=== PATIENT | female | born 2000 | race Caucasian/White ===

== ENCOUNTER 2020-02-27 20:37 | Emergency (ER) | payer MEDICAID ==
[2020-02-27] MEDS ORDERED: Albuterol 2.5 MG/3 ML NEB.SOL* (0.083%) INH ONE ×3 (20:42→21:10)
--- NOTE | 2020-02-27 20:46 | ED ---
Shortness of Breath - HPI Summary HPI Summary: 19-year-old female with a significant past medical history of type 2 diabetes, asthma presents to the emergency department today complaining of shortness of breath. Patient states her shortness of breath began approximately 30 minutes ago while she was walking. Patient states she used her albuterol inhaler prior to arrival. At this time patient has no evidence of labored breathing and is in no acute distress. There is no wheezing or stridor noted. Patient felt well prior to this episode of dyspnea with no fever, chest pain, abdominal pain , nausea, vomiting, diarrhea. Patient states she has been using her albuterol rescue inhaler approximately 4 times a week. Patient denies alcohol use or recreational drug use. Patient is not considered high risk for COVID19. Patient states she has been tested 4 times for COVID-19 and all tests have returned negative. - History of Current Complaint Time Seen by Provider: 02/27/20 20:41 Hx Obtained From: Patient Onset/Duration: Sudden Onset Timing: Constant Current Severity: Mild Alleviating Factors: Bronchodilators Associated Signs & Symptoms: Negative - Allergy/Home Medications Allergies/Adverse Reactions: Allergies Allergy/AdvReac Type Severity Reaction Status Date / Time egg Allergy Coughing Verified 02/27/20 21:02 lactose Allergy Diarrhea Verified 02/27/20 21:02 Home Medications: Home Medications Albuterol HFA INHALER* [Ventolin HFA Inhaler*] 2 puff INH Q4H PRN 02/27/20 [ History Confirmed 02/27/20] Review of Systems Constitutional: Negative Eyes: Negative ENT: Negative Cardiovascular: Negative Positive: Shortness Of Breath. Negative: Cough Gastrointestinal: Negative Genitourinary: Negative Musculoskeletal: Negative Skin: Negative Neurological/Mental Status: Negative Psychological: Normal All Other Systems Reviewed And Are Negative: Yes Physical Exam - Summary Physical Exam Summary: Patient is no acute distress. There is no tracheal deviation, stridor, wheezing noted. Patient is able to speak in full unbroken sentences. No evidence of accessory muscle use of breathing. Triage Information Reviewed: Yes Vital Signs Reviewed: Yes Appearance: Positive: Well-Appearing, No Pain Distress, Well-Nourished Skin: Positive: Warm, Skin Color Reflects Adequate Perfusion Eyes: Positive: EOMI, MASHA ENT: Positive: Hearing grossly normal Respiratory/Lung Sounds: Positive: Clear to Auscultation, Breath Sounds Present. Negative: Stridor, Tracheal Deviation, Wheezes, Unable to speak in full sentences, Fatigue Cardiovascular: Positive: RRR, S1, S2 Abdomen Description: Positive: Nontender, Soft Bowel Sounds: Positive: Present Musculoskeletal: Positive: Strength/ROM Intact Neurological: Positive: Sensory/Motor Intact, Alert, Oriented to Person Place, Time, Normal Gait, Facial Symmetry, Speech Normal Psychiatric: Positive: Normal, Affect/Mood Appropriate AVPU Assessment: Alert Procedures - Sedation Patient Received Moderate/Deep Sedation with Procedure: No Course/Dx - Course Course Of Treatment: Patient was evaluated in the emergency department today for shortness of breath. Vitals noted and stable. Patient had no evidence of labored breathing. Plan of care blood glucose shows BG 90. Patient was given 50 mg oral prednisone and albuterol neb for asthma exacerbation. Patient continued to be in no acute distress. Patient discharged to outpatient follow- up. - Diagnoses Differential Diagnosis/HQI/PQRI: Positive: Airway Obstruction, Asthma, Bronchitis, COPD Exacerbation Provider Diagnoses: Dyspnea Discharge ED - Sign-Out/Discharge Documenting (check all that apply): Patient Departure - Discharge Plan Condition: Stable Disposition: HOME Patient Education Materials: Asthma (ED) Referrals: [facility] [Outside] - 3 Days Additional Instructions: You were seen in the emergency department today due to an asthma exacerbation. Please continue to use your albuterol rescue inhaler as needed. I have referred you to a primary care provider whom you may become established with for further treatment of your asthma. Please return to this emergency department immediately should you develop any new or worsening symptoms including increasing shortness of breath. - Billing Disposition and Condition Condition: STABLE Disposition: Home - Attestation Statements Provider Attestation: I was available for consult. This patient was seen by the JUAN ALBERTO. The patient was not presented to, seen by, or examined by me. Edwin Menon MD
[2020-02-27 21:42] VITALS: BP 143/86
== END 2020-02-27 21:40 | disposition home or self-care (01) ==
LOC: ED 20:37
DX: R06.00 Dyspnea, unspecified (principal); E11.9 Type 2 diabetes mellitus without complications; J45.909 Unspecified asthma, uncomplicated; R06.02 Shortness of breath; Z79.899 Other long term (current) drug therapy
CPT/HCPCS: 99282; J7512

== ENCOUNTER 2020-03-12 19:42 | Emergency (ER) | payer MEDICAID ==
--- NOTE | 2020-03-12 20:17 | ED ---
HPI Diabetic - HPI Summary HPI Summary: 19 year old female presents with increased thirst for the past couple weeks. Has history of type 1 diabetes. Patient has been drinking a lot of fluids. She admits to occasionally abd pain. She states the pain is intermittent. She denies any chest pain or shortness breath. No cough. No urinary symptoms. No nausea vomiting. No diarrhea constipation. She does not have primary in the area so she has not been taking her diabetes medications. She states that metformin makes her sugars go too low. She is suppose to be on insulin. She denies any other complaints. - History Of Current Complaint Chief Complaint: EDDiabeticProb Time Seen by Provider: 03/12/20 19:49 - Allergies/Home Medications Allergies/Adverse Reactions: Allergies Allergy/AdvReac Type Severity Reaction Status Date / Time egg Allergy Coughing Verified 02/27/20 21:02 lactose Allergy Diarrhea Verified 02/27/20 21:02 Home Medications: Home Medications Albuterol HFA INHALER* [Ventolin HFA Inhaler*] 2 puff INH Q4H PRN 02/27/20 [ History Confirmed 03/12/20] PMH/Surg Hx/FS Hx/Imm Hx Endocrine/Hematology History: Reports: Hx Diabetes Respiratory History: Reports: Hx Asthma Infectious Disease History: No Infectious Disease History: Denies: Traveled Outside the [place] in Last 30 Days - Family History Known Family History: Positive: Non-Contributory - Social History Alcohol Use: None Substance Use Type: Reports: None Smoking Status (MU): Never Smoked Tobacco Review of Systems Negative: Fever Negative: Chest Pain Negative: Shortness Of Breath Positive: other - increase thirst All Other Systems Reviewed And Are Negative: Yes Physical Exam Triage Information Reviewed: Yes Vital Signs On Initial Exam: Initial Vitals Temp Pulse Resp BP Pulse Ox 98.9 F 94 16 137/103 97 03/12/20 19:48 03/12/20 19:48 03/12/20 19:48 03/12/20 19:48 03/12/20 19:48 Vital Signs Reviewed: Yes Appearance: Positive: Well-Appearing Skin: Positive: Warm, Dry Head/Face: Positive: Normal Head/Face Inspection Eyes: Positive: Normal, Conjunctiva Clear ENT: Positive: Pharynx normal Respiratory/Lung Sounds: Positive: Clear to Auscultation, Breath Sounds Present Cardiovascular: Positive: Normal, RRR Abdomen Description: Positive: Nontender, Soft Bowel Sounds: Positive: Present Musculoskeletal: Positive: Normal Neurological: Positive: Normal Psychiatric: Positive: Normal Procedures - Sedation Patient Received Moderate/Deep Sedation with Procedure: No Diagnostics - Vital Signs Vital Signs Temp Pulse Resp BP Pulse Ox 03/12/20 19:48 98.9 F 94 16 137/103 97 - Laboratory Lab Results: Lab Results 03/12/20 Range/Units 19:57 POC Glucose (mg/dL) 138 H (70-100) mg/dL Result Diagrams: 03/12/20 20:32 03/12/20 20:32 Lab Statement: Any lab studies that have been ordered have been reviewed, and results considered in the medical decision making process. Diabetic Course/Dx - Course Course Of Treatment: 19 year old female presents with increased thirst for the past couple weeks. Has history of type 1 diabetes. Patient has been drinking a lot of fluids. She admits to occasionally abd pain. She states the pain is intermittent. She denies any chest pain or shortness breath. No cough. No urinary symptoms. No nausea vomiting. No diarrhea constipation. She does not have primary in the area so she has not been taking her diabetes medications. She states that metformin makes her sugars go too low. She is suppose to be on insulin. She denies any other complaints. On exam has nontender abd. glucose normal. wbc normal. sent for Hb A1c. will have follow up with karma nieto as sugars have been normal here do not want to start on any medications. told to buy otc glucose test scripts to test sugars. told to watch diet. patient understand and agrees with plan. - Diagnoses Differential Dx: Diabetic Ketoacidosis, Hyperglycemia, New Onset Diabetes Provider Diagnoses: Excessive thirst - Critical Care Time Critical Care Statement: Critical care time is provided exclusive of any time spent performing procedures. Discharge ED - Sign-Out/Discharge Documenting (check all that apply): Patient Departure - Discharge Plan Condition: Good Disposition: HOME Patient Education Materials: Meal Planning with Diabetes Exchanges (DC) Referrals: [facility] [Outside] Additional Instructions: follow up with karma nieto Start checking sugars daily Return to ED if develop any new or worsening symptoms - Billing Disposition and Condition Condition: GOOD Disposition: Home
[2020-03-12 20:45] LABS: ABS Basophils 0.1 10^3/ul (0-0.2); ABS Eosinophils 0.2 10^3/ul (0-0.6); ABS Lymphocytes 2.2 10^3/ul (1.0-4.8); ABS Monocytes 0.5 10^3/ul (0-0.8); ABS Neutrophils 3.9 10^3/ul (1.5-7.7); Eosinophil % 2.2 %; Hematocrit 38 % (35-47); Hemoglobin 12.6 g/dL (12.0-16.0); Lymphocyte % 32.7 %; Mean Corpuscular HGB Conc 33 g/dL (31-36); Mean Corpuscular Hemoglobin 25 pg (27-31); Mean Corpuscular Volume 77 fL (80-97); Mean Platelet Volume 7.1 fL (7.4-10.4); Platelet Count 341 10^3/uL (150-450); Red Blood Count 4.97 10^6 /uL (3.70-4.87); Red Cell Distribution Width 16 % (10-15); White Blood Count 6.8 10^3/uL (3.5-10.8)
[2020-03-12 21:01] LABS: ALT 20 U/L (7-52); AST 13 U/L (13-39); Albumin 4.6 g/dL (3.2-5.2); Albumin/Globulin Ratio 1.6 (1-3); Alkaline Phosphatase 95 U/L (34-104); Anion Gap 9 mmol/L (2-11); BUN/Creatinine Ratio 11.1 (8-20); Blood Urea Nitrogen 10 mg/dL (6-24); C Reactive Protein < 1.00 mg/L (<8.01); CO2 Carbon Dioxide 25 mmol/L (22-32); Calcium 9.4 mg/dL (8.6-10.3); Chloride 109 mmol/L (101-111); EGFR African American 97.6 (>60); EGFR Non-African American 80.7 (>60); Globulin 2.9 g/dL (2-4); Glucose 86 mg/dL (70-100); Potassium 3.2 mmol/L (3.5-5.0); Sodium 143 mmol/L (135-145); Total Protein 7.5 g/dL (6.4-8.9)
[2020-03-12 22:01] VITALS: BP 136/97
== END 2020-03-12 22:00 | disposition home or self-care (01) ==
LOC: ED 19:42
DX: R63.1 Polydipsia (principal); J45.909 Unspecified asthma, uncomplicated; E10.9 Type 1 diabetes mellitus without complications; Z79.899 Other long term (current) drug therapy
CPT/HCPCS: 36415; 80053; 82803; 83036; 83605; 83690; 85025; 86140; 99283

== ENCOUNTER 2020-03-13 17:48 | Emergency (ER) | payer MEDICAID ==
--- NOTE | 2020-03-13 18:21 | ED ---
Complex/Multi-Sys Presentation - HPI Summary HPI Summary: 19 year old F presenting to [facility] with a chief complaint of reportedly fluctuating sugars. Patient reports that she was told that she needs to check her sugars but is unable to check her sugars at home so she calls the ambulance. She also reports difficulty seeing earlier today and excessive thirst. The patient rates the pain 0/10 in severity. Symptoms aggravated by nothing. Symptoms alleviated by nothing. Patient denies any fever, chills, erythema of eyes, sore throat, chest pain, shortness of breath, cough, abdominal pain, nausea/vomiting, dysuria, hematuria, myalgia, edema, rash, or dizziness. She states that she does not have a PCP. Medication list reviewed. Allergy list reviewed. - History Of Current Complaint Chief Complaint: EDGeneral Time Seen by Provider: 03/13/20 17:55 Hx Obtained From: Patient Onset/Duration: Still Present Timing: Constant Aggravating Factor(s): None Alleviating Factor(s): None Associated Signs And Symptoms: Positive: Other - Difficulty seeing, thirst. Negative: Dizziness, SOB, Cough, Chest Pain, Edema, Nausea, Vomiting, Abdominal Pain, Dysuria, Fever - Allergies/Home Medications Allergies/Adverse Reactions: Allergies Allergy/AdvReac Type Severity Reaction Status Date / Time egg Allergy Coughing Verified 03/13/20 18:00 lactose Allergy Diarrhea Verified 03/13/20 18:00 Home Medications: Home Medications Albuterol HFA INHALER* [Ventolin HFA Inhaler*] 2 puff INH Q4H PRN 02/27/20 [ History Confirmed 03/13/20] PMH/Surg Hx/FS Hx/Imm Hx Endocrine/Hematology History: Reports: Hx Diabetes Respiratory History: Reports: Hx Asthma - Surgical History Surgical History: None Infectious Disease History: No Infectious Disease History: Denies: Traveled Outside the [place] in Last 30 Days - Family History Known Family History: Negative: Hypertension, Diabetes - Social History Alcohol Use: None Substance Use Type: Reports: None Smoking Status (MU): Never Smoked Tobacco Review of Systems Positive: Other - Fluctuating sugars, thirst. Negative: Fever, Chills Positive: Other - Difficulty seeing. Negative: Erythema Negative: Sore Throat Negative: Chest Pain Negative: Shortness Of Breath, Cough Negative: Abdominal Pain, Vomiting, Nausea Negative: dysuria, hematuria Negative: Myalgia, Edema Negative: Rash Neurological/Mental Status: Negative - Dizziness All Other Systems Reviewed And Are Negative: Yes Physical Exam - Summary Physical Exam Summary: Constitutional: Well-developed, Well-nourished, Alert. (-) Distressed Skin: Warm, Dry HENT: Normocephalic; Atraumatic Eyes: Conjunctiva normal Neck: Musculoskeletal ROM normal neck. (-) JVD, (-) Stridor, (-) Tracheal deviation Cardio: Rhythm regular, mild tachycardia, heart rate of 104 BPM, Heart sounds normal; Intact distal pulses; The pedal pulses are 2+ and symmetric. Radial pulses are 2+ and symmetric. (-) Murmur Pulmonary/Chest wall: Effort normal. (-) Respiratory distress, (-) Wheezes, (-) Rales Abd: Soft, (-) tenderness, (-) Distension, (-) Guarding, (-) Rebound Musculoskeletal: (-) Edema Lymph: (-) Cervical adenopathy Neuro: Alert, Oriented x3 Psych: Mood and affect Normal Triage Information Reviewed: Yes Vital Signs On Initial Exam: Initial Vitals Temp Pulse Resp BP Pulse Ox 98.8 F 94 18 142/93 97 03/13/20 17:56 03/13/20 17:56 03/13/20 17:56 03/13/20 17:56 03/13/20 17:56 Vital Signs Reviewed: Yes Procedures - Sedation Patient Received Moderate/Deep Sedation with Procedure: No Diagnostics - Vital Signs Vital Signs Temp Pulse Resp BP Pulse Ox 03/13/20 17:56 98.8 F 94 18 142/93 97 - Laboratory Result Diagrams: 03/13/20 18:40 03/13/20 18:40 Lab Statement: Any lab studies that have been ordered have been reviewed, and results considered in the medical decision making process. Complex Multi-Symp Course/Dx Course Of Treatment: 19 year old F presenting to [facility] with a chief complaint of reportedly fluctuating sugars. Patient reports that she was told that she needs to check her sugars but is unable to check her sugars at home so she calls the ambulance. She also reports difficulty seeing earlier today and excessive thirst. Physical exam findings: mild tachycardia, heart rate of 104 BPM. Laboratory results with no significant abnormalities except for an RBC of 5.16, MCV of 77, MCH of 25, RDW of 16, MPV of 7.0, VBG pCO2 of 35, VBG HCO3 of 20.2, VBG O2 saturation of 63.6, VBG base excess of -4.9, potassium of 3.3, glucose of 106, and ur specific gravity of 1.002. Patient will be discharged with follow up from [facility]. She has an appointment with [facility] tomorrow and will keep her appointment. She should receive a glucose tolerance test, there is no indication to start any medications currently. There is no indication for her to take home blood glucose. She could have psychogenic polydipsia. The patient is agreeable with this plan. - Diagnoses Provider Diagnoses: Hyperglycemia, Elevated hemoglobin A1c, Polydipsia - Critical Care Time Critical Care Statement: Critical care time is provided exclusive of any time spent performing procedures. Discharge ED - Sign-Out/Discharge Documenting (check all that apply): Patient Departure - Discharge Plan Condition: Stable Disposition: HOME Patient Education Materials: Nondiabetic Hyperglycemia (ED) Referrals: [facility] [Outside] - 2 Days Additional Instructions: Follow-up with [facility] in 2 days. Return to the emergency department for changing or worsening symptoms. - Attestation Statements Document Initiated by Scribe: Yes Documenting Scribe: Kayley Kingston Provider For Whom Scribe is Documenting (Include Credential): Shorty El MD Scribe Attestation: Kayley Cardona, scribed for Shorty El MD on 03/13/20 at 2149. Status of Scribe Document: Ready
--- OUTSIDE RECORDS SUMMARY | 2020-03-13 18:46 | XMS REPORT | Summary of Care ---
:2000 Author Organization [facility] Address [address] [place] [address] Care Team Providers Name Role Phone Catrachito Laytonika Amanda SALMON Primary Care Provider Reason for Visit Reason Comments Shortness of Breath Encounter Details Date Type Department Care Team Description 02/02/2020 Emergency EMERGENCY DEPARTMENT CC Marquez Keith, Shortness of breath [address]osa MD (Primary Dx) [place] [address] [address] [facility] [phone] [place], [place] [id number] Allergies Active Allergy Reactions Severity Noted Date Comments Eggs Or Egg-Derived Products 01/10/2020 Lactose Diarrhea Medium 01/11/2020 documented as of this encounter (statuses as of 02/02/2020) Medications Medication Sig Dispensed Refills Start Date End Date Status LITHIUM PO Take 600 mg by 0 Active mouth nightly MELATONIN TR PO Take 10 mg by 0 Active mouth nightly OLANZapine 10 MG Oral Take 15 mg by 0 Active Tablet (ZYPREXA) mouth nightly Polyethylene Glycol Take 17 g by 0 Active 3350 Oral Packet mouth daily as (MIRALAX) needed Please substitute bottle for packets, if packets are unavailable. Sertraline HCl 50 MG Take 50 mg by 0 Active Oral Tablet (ZOLOFT) mouth daily Vitamin D3 25 MCG Take 2,000 Units 0 Active (1000 UT) Oral Tablet by mouth daily (CHOLECALCIFEROL) Atorvastatin Calcium Take 10 mg by 0 Active 10 MG Oral Tablet mouth every (LIPITOR) evening cloNIDine HCl 0.1 MG Take 0.1 mg by 0 Active Oral Tablet mouth Two Times (CATAPRES) Daily Saline Nasal [place] 2 sprays by Nasal 0 Active 0.65 % Nasal Solution route as needed (OCEAN) for Congestion Senna 8.6 MG Oral Take 2 tablets by 60 tablet 0 01/11/2020 02/10/2020 Active Tablet mouth nightly Ondansetron 4 MG Oral Take 1 tablet by 15 tablet 0 01/16/2020 Active Tablet Disintegrating mouth every 8 (ZOFRAN-ODT) (eight) hours as needed for Nausea Acetaminophen 325 MG Take 2 tablets by 30 tablet 0 01/24/2020 02/03/2020 Active Oral Tablet mouth every 6 (six) hours as needed for Pain for up to 10 days Ibuprofen 400 MG Oral Take 1 tablet by 30 tablet 0 01/24/2020 02/03/2020 Active Tablet (ADVIL,MOTRIN) mouth every 6 (six) hours as needed for Pain for up to 10 days documented as of this encounter (statuses as of 02/02/2020) Active Problems Problem Noted Date Urinary retention 01/10/2020 Suicidal ideations 10/26/2015 Aggressive behavior of adolescent 10/24/2015 documented as of this encounter (statuses as of 02/02/2020) Immunizations Name Administration Dates Next Due Influenza Quad IM with Pres (0.5 mL dose) 10/28/2015 documented as of this encounter Social History Tobacco Use Types Packs/Day Years Used Date Never Smoker Smokeless Tobacco: Never Used Alcohol Use Drinks/Week oz/Week Comments No Sex Assigned at Date Recorded Not on file Job Start Date Occupation Industry Not on file Not on file Not on file Travel History Travel Start Travel End No recent travel history available. documented as of this encounter Last Filed Vital Signs Vital Sign Reading Time Taken Comments Blood Pressure 138/81 02/02/2020 5:42 PM EDT Pulse 95 02/02/2020 5:42 PM EDT Temperature 37 02/02/2020 6:07 PM EDT C (98.6 F) Respiratory Rate 18 02/02/2020 5:42 PM EDT Oxygen Saturation 95% 02/02/2020 5:42 PM EDT Inhaled Oxygen Concentration - - Weight - - Height - - Body Mass Index - - documented in this encounter Discharge Instructions AttachmentsThe following attachments cannot be sent through Care Everywhere.Asthma, Acute (Adult) (Hebrew)documented in this encounter Plan of Treatment Date Type Specialty Care Team Description 07/23/2020 Office Visit Urology Hyacinth Funez MD [address] [place] [address] [phone] Name Type Priority Associated Diagnoses Date/Time Microbiology Microbiology Routine 02/02/2020 6:02 PM Miscellaneous EDT Name Type Priority Associated Diagnoses Order Schedule Microbiology Microbiology Routine Once for 1 Miscellaneous Occurrences starting 02/02/2020 until 02/02/2020 Health Maintenance Due Date Last Done Comments Pneumococcal Vaccine: Pediatrics 2006 (0 to 5 Years) and At-Risk Patients (6 to 64 Years) (1 of 1 - PPSV23) Influenza Vaccine 08/21/2019 10/28/2015 Chlamydia Screening 01/13/2021 01/13/2020, 01/11/2020, 01/10/2020 DTaP,Tdap,and Td Vaccines (8 - Td) 05/07/2029 05/07/2019, 06/05/2012, 02/27/2007, Additional history exists Pneumococcal Vaccine: 65+ Years (1 2065 of 2 - PCV13) HIB Vaccines Completed 01/12/2002, 01/12/2002, 02/10/2001, Additional history exists IPV Vaccines Completed 07/06/2005, 01/12/2002, 02/10/2001, Additional history exists MMR Vaccines Completed 07/06/2005, 08/18/2001 Varicella Vaccines Completed 06/03/2011, 08/18/2001 HPV Vaccines Completed 01/07/2016, 06/19/2015, 06/13/2014, Additional history exists Hepatitis A Vaccines Completed 12/02/2018, 12/02/2018, 07/20/2017, Additional history exists Hepatitis B Vaccines Completed 04/28/2019, 10/29/2018, 07/20/2017 HIV Screening Completed 01/11/2020, 01/10/2020 documented as of this encounter Procedures Procedure Name Priority Date/Time Associated Diagnosis Comments RESPIRATORY PANEL STAT 02/02/2020 6:02 PM Results for this EDT procedure are in the results section. documented in this encounter Results Respiratory Panel (02/02/2020 6:02 PM EDT) Special Request None [facility] at Culture/Results Polymerase chain reaction is NEGATIVE for Influenza A H1, H3 and 2009 H1 viruses, Influenza B virus, Respiratory syncytial virus, Human metapneumovirus, Parainfluenza virus 1, 2, 3 and 4, Adenovirus, Rh [facility] inovirus/Enterovirus, Coronavirus HKU1, NL63, OC43, [facility] and 229E, Bordetella pertussis, Mycoplasma pneumoniae and Chlamydia pneumoniae. This assay does not detect novel Coronavirus (SARS-CoV, SARS-CoV-2, MERS-CoV) . Specimen Nasopharyngeal Swab Performing Organization Address City/State/Zipcode Phone Number [facility] AT [address] [address] [facility] at [address] [place] [address] documented in this encounter Visit Diagnoses Diagnosis Shortness of breath - Primary documented in this encounter
--- OUTSIDE RECORDS SUMMARY | 2020-03-13 18:46 | XMS REPORT | Continuity of Care Document ---
:2000 Author Organization [facility] Address [address] [place] [address] Phone Care Team Providers Name Role Phone Khoi Peters NP, Bella Unavailable Unavailable Allergies, Adverse Reactions, Alerts Substance Reaction Status Criticality No Known Allergies Active No Information Medications Medication Instructions Dosage Effective Status Comments Dates (start - stop) medroxyprogesterone 150 IM Q 10-13 weeks - Active mg/mL intramuscular suspension sertraline 50 mg tablet take 1 tablet by 50 MG - Active oral route every day lithium carbonate 300 mg take 1 capsule by 300 MG - Active capsule oral route 3 times every day Folgard 2,000 unit-800 - Active mcg-0.32 mg tablet Colace 100 mg capsule take 1 capsule by 100 MG - Active oral route every day at bedtime as needed olanzapine 15 mg tablet take 1 tablet by 15 MG - Active oral route every day melatonin 10 mg capsule - Active Miralax 17 gram oral take 1 packet by 17 G - Active powder packet oral route every day mixed with 8 oz. water, juice, soda, coffee or tea senna 8.6 mg tablet take 2 tablet by 2.00 tablet - Active oral route every day as needed for constipation atorvastatin 10 mg tablet take 1 tablet by 10 MG - Active oral route every day clonidine HCl 0.1 mg take 1 tablet by 0.1 MG - Active tablet oral route 2 times every day Problems Condition Effective Dates (start - Clinical Status Comments stop) Encounter for surveillance of injectable contraceptive Encounter for test, result negative Encntr screen for infections w sexl mode of transmiss Encounter for initial prescription of injectable contracep Procedures Procedure Date INJECTION DEPO/ROCEPH Medroxyprogesterone Inj. Injection Or Lab Only Visit Est Results Test Name Date and Time Measure Units Reference Range Abnormal Flag Status Comments No Information Advance Directives Directive Yes / No Effective Date File Name No Information Encounters Encounter Practice Location Reason(s) Diagnoses Date Provider Providers Description For Visit Copied on [facility]counter [facility] Encounter for Khoi Peters Referring Parenthood [facility] surveillance of [facility] Provider: Central & injectable 0 . [address] [facility], contraceptive [facility], [address] [place], [address] [place] [address], [place], [place], [place], [place], [place], [id number], [place], [id number], . [place], tel:[phone]. tel:[phone] tel:[phone] [id number] [facility] Encounter for Khoi Peters Referring Parenthood Nancy test, [facility] Provider: Central & result 9 . 114 [facility], negativeEncntr [facility], [address] [place], [address] [place] [address], infections w [place], [facility], sexl mode of [place], [place], [place], transmissEncoun [id number], [place], [id number], ter for initial [place]. [place], prescription of tel:[phone]. tel:[phone] tel:[phone] contracep [id number] Family History Family Member Diagnosis Age At Onset 1st degree relative No hx of coronary heart disease (female <65, male <55) 1st degree relative No hx of venous thromboembolism 1st degree relative No hx of cancer of breast, colon, endometrium or ovary 1st degree relative No hx of osteoporosis Immunizations Vaccine Date Status Comments No Information Payers Payer name Insurance type Covered republican ID Authorization(s) Medicaid MC [id number] Social History Type Description Quantity Date Captured Comments Alcohol Use Details Unknown Caffeine Use Details Unknown Tobacco Use Status No Information Smoking Status Never smoker Sex Female Vital Signs Date / Height Weight BMI Pulse Blood Temperature Respiratory Body Head BMI Pulse Inhaled Time: Rate Pressure Rate Surface Circumference percentile [place] Area No Information Chief Complaint And Reason For Visit No Information Reason For Referral Reason For Referral No Information Plan Of Treatment Date Type Action Status No Information History Of Present Illness Encounter Date Complaint History Of Present Illness No Information Functional Status Date Functional Assessment No Information Medications Administered Medication Instructions Dosage Effective Dates (start - stop) Status Comments No Information Instructions Date Instruction Additional Information No Information Assessments Type Assessment Date assessment Encounter for surveillance of injectable contraceptive Goals Health Concern Goal Type Priority Status Date No Information Medical Equipment Description Device [place] Device Identifier Effective Dates (start - stop ) Status No Information Mental Status Date Cognitive Assessment No Information Health Concerns Observation Date No Information Concern Status Date No Information Physical Examination Exam Findings Details No Information
--- OUTSIDE RECORDS SUMMARY | 2020-03-13 18:46 | XMS REPORT | Summary of Care ---
:2000 Author Organization [facility] Address [address] [place] [address] Care Team Providers Name Role Phone OnitrevonreinaCatrachitoKrystal Amanda SALMON Primary Care Provider Reason for Visit Reason Comments Barriga Catheter Problem Encounter Details Date Type Department Care Team Description 01/13/2020 - Emergency PEDIATRIC EMERGENCY Trever Ham MD [address] [place] [address] [phone] Urinary tract infection 01/14/2020 DEPARTMENT Edwin Tate MD [address] [place] [address] [phone] associated with [address] [facility] catheterization of [place], [place] urinary tract, [id number] unspecified indwelling [phone] urinary catheter type, initial encounter (Primary Dx) Allergies Active Allergy Reactions Severity Noted Date Comments Eggs Or Egg-Derived Products 01/10/2020 Lactose Diarrhea Medium 01/11/2020 documented as of this encounter (statuses as of 01/14/2020) Medications Medication Sig Dispensed Refills Start Date End Date Status LITHIUM PO Take 600 mg by 0 Active mouth nightly MELATONIN TR PO Take 10 mg by 0 Active mouth nightly OLANZapine 10 MG Take 15 mg by 0 Active Oral Tablet mouth nightly (ZYPREXA) Polyethylene Glycol Take 17 g by 0 Active 3350 Oral Packet mouth daily as (MIRALAX) needed Please substitute bottle for packets, if packets are unavailable. Sertraline HCl 50 MG Take 50 mg by 0 Active Oral Tablet (ZOLOFT) mouth daily Vitamin D3 25 MCG Take 2,000 Units 0 Active (1000 UT) Oral by mouth daily Tablet (CHOLECALCIFEROL) Atorvastatin Calcium Take 10 mg by 0 Active 10 MG Oral Tablet mouth every (LIPITOR) evening cloNIDine HCl 0.1 MG Take 0.1 mg by 0 Active Oral Tablet mouth Two Times (CATAPRES) Daily Saline Nasal [place] 2 sprays by Nasal 0 Active 0.65 % Nasal route as needed Solution (OCEAN) for Congestion Acetaminophen 325 MG Take 2 tablets by 30 tablet 0 01/11/2020 01/21/2020 Active Oral Tablet mouth every 6 (six) hours as needed for up to 10 days Senna 8.6 MG Oral Take 2 tablets by 60 tablet 0 01/11/2020 02/10/2020 Active Tablet mouth nightly Docusate Sodium 100 Take 1 capsule by 20 capsule 0 01/11/2020 01/21/2020 Active MG Oral Capsule mouth Two Times (COLACE) Daily for 10 days Cephalexin 500 MG Take 1 capsule by 40 capsule 0 01/14/2020 01/24/2020 Active Oral Capsule mouth Four times (KEFLEX) daily for 10 days documented as of this encounter (statuses as of 01/14/2020) Active Problems Problem Noted Date Urinary retention 01/10/2020 Suicidal ideations 10/26/2015 Aggressive behavior of adolescent 10/24/2015 documented as of this encounter (statuses as of 01/14/2020) Immunizations Name Administration Dates Next Due Influenza [...] Sign Reading Time Taken Comments Blood Pressure 118/76 01/14/2020 2:06 AM EST Pulse 89 01/14/2020 2:06 AM EST Temperature 36.4 01/14/2020 2:06 AM EST C (97.6 F) Respiratory Rate 18 01/14/2020 2:06 AM EST Oxygen Saturation 96% 01/14/2020 2:06 AM EST Inhaled Oxygen Concentration - - Weight 108 kg (238 lb 1.6 oz) 01/13/2020 6:38 PM EST Height 172.7 cm (5' 8") 01/13/2020 6:38 PM EST Body Mass Index 36.2 01/13/2020 6:38 PM EST documented in this encounter Discharge Instructions AttachmentsThe following attachments cannot be sent through Care Everywhere.Catheter-Associated Urinary Tract Infections (Citizen Of [place])Urinary Retention, Female (Citizen Of [place])documented in this encounter Progress Notes Gadiel Saldivar MD - 01/14/2020 2:38 AM ESTCalled by ER regarding patient who recently had barriga placed for urinary retention, with follow up not until 02/19. The question was regarding if barriga could be removed. Stated that it is reasonableto offer a trial of void, with assessment of postvoid residual, and replacement of the barriga with shorter term urology follow up if she fails the TOV. documented in this encounter Plan of Treatment Date Type Specialty Care Team Description 02/20/2020 Office Visit Urology Hyacinth Funez MD [address] [place] [address] [phone] Name Type Priority Associated Diagnoses Date/Time Amplified GC and Microbiology STAT 01/13/2020 11:12 PM Chlamydia EST Urine Culture ; Urine Microbiology Routine 01/13/2020 8:29 PM EST Name Type Priority Associated Diagnoses Order Schedule Amplified GC and Microbiology STAT STAT for 1 Occurrences Chlamydia starting 01/13/2020 until 01/13/2020 Urine Culture Microbiology Routine Once for 1 Occurrences starting 01/13/2020 until 01/13/2020 Health Maintenance Due Date Last Done Comments Pneumococcal Vaccine: Pediatrics 2006 (0 to 5 Years) and At-Risk Patients (6 to 64 Years) (1 of 1 - PPSV23) Influenza Vaccine 08/21/2019 10/28/2015 Chlamydia Screening 01/11/2021 01/11/2020, 01/10/2020 DTaP,Tdap,and Td Vaccines (8 - [...] encounter Procedures Procedure Name Priority Date/Time Associated Comments Diagnosis BETA HCG, QUANT STAT 01/14/2020 12:18 Results for this AM EST procedure are in the results section. SEDIMENTATION RATE, STAT 01/14/2020 12:18 Results for this AUTOMATED AM EST procedure are in the results section. CBC AND DIFFERENTIAL STAT 01/14/2020 12:18 Results for this AM EST procedure are in the results section. INFLAMMATORY STAT 01/14/2020 12:18 Results for this C-REACTIVE PROTEIN AM EST procedure are in (CRP) the results section. LIPASE LEVEL STAT 01/14/2020 12:18 Results for this AM EST procedure are in the results section. HEPATIC FUNCTION PANEL STAT 01/14/2020 12:18 Results for this A AM EST procedure are in the results section. BASIC METABOLIC PANEL STAT 01/14/2020 12:18 Results for this AM EST procedure are in the results section. WET PREP, GENITAL STAT 01/13/2020 11:12 Results for this PM EST procedure are in the results section. AIMEE PREP STAT 01/13/2020 11:12 Results for this PM EST procedure are in the results section. GRAM STAIN STAT 01/13/2020 11:12 Results for this PM EST procedure are in the results section. US ABDOMEN LIMITED STAT 01/13/2020 10:48 Results for this 201[address] PM EST procedure are in the results section. US RENAL OR AORTA STAT 01/13/2020 10:48 Results for this COMPLETE 39862 PM EST procedure are in the results section. US TRANSVAGINAL WITH STAT 01/13/2020 10:48 Results for this DOPPLER (ED USE ONLY) PM EST procedure are in the results section. URINALYSIS WITH STAT 01/13/2020 8:59 Results for this MICROSCOPIC PM EST procedure are in the results section. documented in this encounter Results Inflammatory C-Reactive Protein (CRP) (01/14/2020 12:18 AM EST) C Reactive Protein 7.3 <8.0 mg/L [facility] Pathology Specimen Plasma Performing Organization Address [facility] Phone Number [facility] [address] [place] [address] [phone] [facility] [address] [place] [phone] Pathology Sedimentation rate, automated (01/14/2020 12:18 AM EST) Sed Rate - ESR 25 (H) <20 mm/hr [facility] Pathology Specimen EDTA Whole Blood Performing Organization Address [facility] Phone Number [facility] [address] [place] [phone] [facility] [address] [place] [phone] Pathology Beta Hcg, Quant (01/14/2020 12:18 AM EST) Beta HCG, Quant <1 <5 m[IU]/mL [facility] Pathology Specimen Plasma Performing Organization Address [facility] Phone Number [facility] [address] [place] [address] [phone] [facility] [address] [place] [phone] Pathology Lipase Level (01/14/2020 12:18 AM EST) Lipase 41 13 - 60 U/L [facility] Pathology Specimen Plasma Performing Organization Address [facility] Phone Number [facility] [address] [place] [address] [phone] [facility] [address] [place] [address] Pathology Hepatic Function Panel (01/14/2020 12:18 AM EST) Albumin 4.3 3.5 - 5.2 g/dL [facility] Pathology Bilirubin, Total 0.5 <1.2 mg/dL [facility] Pathology Bilirubin, Direct <0.2 <0.3 mg/dL [facility] Pathology Alkaline Phosphatase 107 (H) 45 - 87 U/L [facility] Pathology AST/SGO 18 <32 U/L [facility] Pathology ALT/SGP 19 <33 U/L [facility] Pathology Total Protein 7.2 6.4 - 8.3 g/dL [facility] Pathology Specimen Plasma Performing Organization Address [facility] Phone Number [facility] [address] [place] [address] [facility] [address] [place] [address] Pathology Basic Metabolic Panel (01/14/2020 12:18 AM EST) Bicarbonate 22 22 - 29 mmol/L [facility] Pathology Chloride 104 98 - 107 mmol/L [facility] Pathology Creatinine 0.78 0.50 - 0.90 [facility] mg/dL [facility] Pathology Glucose 79 70 - 140 mg/dL [facility] Pathology Potassium 3.4 3.4 - 5.1 mmol/L [facility] Pathology Sodium 139 136 - 145 mmol/L [facility] Pathology Blood Urea Nitrogen 11 6 - 20 mg/dL [facility] Pathology Anion Gap 13 8 - 15 mmol/L [facility] Pathology Osmolality, Panda 286 275 - 300 [facility] mosm/kg [facility] Pathology BUN/Cre Ratio 14 [facility] Pathology Calcium 9.4 8.6 - 10.0 mg/dL [facility] Pathology GFR Non >90 >60 [facility] Egyptian 2009 CDK-EPI mL/min/1.73m2 [facility] Pathology GFR >90 >60 [facility] 2009 CKD-EPI mL/min/1.73m2 [facility] Pathology Specimen Plasma Performing Organization Address City/[facility] Phone Number [facility] [address] [place] [address] [phone] [facility] [address] [place] [address] Pathology CBC and Differential (01/14/2020 12:18 AM EST) White Blood Cell 9.9 4.5 - 13 [facility] 10*3/uL [facility] Pathology Red Blood Cell 4.49 4.1 - 5.3 [facility] 10*6/uL [facility]ology Hemoglobin 12.0 11.5 - 15.5 [facility] g/dL [facility]ology Hematocrit 36.1 36 - 45 % [facility] Pathology Mean Cell Volume 80.5 80 - 96 fL [facility] Pathology Mean Cell Hemoglobin 26.8 (L) 27 - 33 pg [facility] Pathology Mean Cell Hgb Conc 33.2 32.0 - 36.0 [facility] g/dL [facility] Pathology Red Cell Dist Width 14.8 (H) 11.5 - 14.5 % [facility] Pathology Platelet Count 335 150 - 400 [facility] 10*3/uL [facility] Pathology Differential Type Automated Diff [facility] Pathology Neutrophil 58 % [facility]ology Lymphocyte 35 % [facility]ology Monocyte 5 % [facility] Pathology Eosinophil 1 % [facility] Pathology Basophil 1 % [facility] Pathology Abs Neutrophil 5.76 1.8 - 7.0 [facility] 10*3/uL [facility] Pathology Abs Lymphocyte 3.40 1.2 - 4.0 [facility] 10*3/uL [facility] Pathology Abs Monocyte 0.53 0 - 0.8 [facility] 10*3/uL [facility] Pathology Abs Eosinophil 0.12 0 - 0.5 [facility] 10*3/uL [facility] Pathology Abs Basophil 0.05 0 - 0.2 [facility] 10*3/uL [facility] Pathology Nucleated Red Blood 0 0 - 0 [facility] Cells /100{WBCs} [facility] Pathology Specimen EDTA Whole Blood Performing Organization Address City/[facility] Phone Number [facility] [address] [place] [address] [facility] [address] [place] [address] Pathology Wet Prep, Genital - Vaginal (01/13/2020 11:12 PM EST) Special Request None [facility] Wet Prep Wet prep: Negative [facility] for Trichomonas [facility] Clin Pathology Specimen Vaginal Performing Organization Address City/[facility] Phone Number [facility] [address] [place] [address] [phone] [facility] [address] [place] [address] Pathology AIMEE prep - Vaginal (01/13/2020 11:12 PM EST) Special Request None [facility] AIMEE Prep No yeast or fungal [facility] Pathology Specimen Vaginal Performing Organization Address City/[facility]/Zipcode Phone Number [facility] [address] [place] [address] [facility] [address] [place] [address] Pathology Gram stain - Vaginal (01/13/2020 11:12 PM EST) Special Request None [facility] Gram Stain 1+ WBC'S Seen. (A) [facility] Pathology Gram Stain Negative for [facility] bacterial [facility] Pathology vaginosis. Specimen Vaginal Performing Organization Address City/[facility]/Zipcode Phone Number [facility] [address] [place] [address] [phone] [facility] [address] [place] [address] Pathology US Abdomen Limited (01/13/2020 10:48 PM EST) Specimen Narrative Performed At PROCEDURE INFORMATION: PENDING SALE TO [facility] Exam: US Abdomen Limited, Appendix Exam date and time: 01/13/2020 9:59 PM Age: 19 years old Clinical indication: Abdominal pain; Tenderness; Right lower quadrant (rlq); Additional info: Eval appy TECHNIQUE: Imaging protocol: Real-time ultrasound of the abdomen with image documentation. Examination was focused on the appendix. COMPARISON: US RENAL OR AORTA COMPLETE [id number] 01/13/2020 10:08 PM FINDINGS: Appendix: The appendix is not visualized Intraperitoneal space: No abnormal fluid Collection is seen. The vessels are unremarkable. IMPRESSION: Nonvisualization of the appendix which does not rule out appendicitis. THIS DOCUMENT HAS BEEN ELECTRONICALLY SIGNED BY GRICELDA LAWLER MD Procedure Note Interface, Received Via Identiv System - 01/13/2020 10:56 PM EST PROCEDURE INFORMATION: Exam: US Abdomen Limited, Appendix Exam date and time: 01/13/2020 9:59 PM Age: 19 years old Clinical indication: Abdominal pain; Tenderness; Right lower quadrant (rlq); Additional info: Eval appy TECHNIQUE: Imaging protocol: Real-time ultrasound of the abdomen with image documentation. Examination was focused on the appendix. COMPARISON: US RENAL OR AORTA COMPLETE [id number] 01/13/2020 10:08 PM FINDINGS: Appendix: The appendix is not visualized Intraperitoneal space: No abnormal fluid Collection is seen. The vessels are unremarkable. IMPRESSION: Nonvisualization of the appendix which does not rule out appendicitis. THIS DOCUMENT HAS BEEN ELECTRONICALLY SIGNED BY GRICELDA LAWLER MD Performing Organization Address City/State/Zipcode Phone Number [facility] [address] [place] [address] US Renal or Aorta Complete (Radiology Suite) (01/13/2020 10:48 PM EST) Specimen Narrative Performed At PROCEDURE INFORMATION: PENDING SALE TO [facility] Exam: US Retroperitoneal Complete. Exam date and time: 01/13/2020 9:59 PM Age: 19 years old Clinical indication: Abdominal pain; Flank; Right; Additional info: Eval hydronephrosis TECHNIQUE: Imaging protocol: Real-time ultrasound of the retroperitoneum with image documentation. Complete exam. COMPARISON: US RENAL OR AORTA COMPLETE [id number] 01/08/2020 4:31 PM FINDINGS: Right kidney: The right kidney measures about 11.9 by 6.3 x 5.6 cm. The right renal cortex measures about 1.2 cm. No hydronephrosis is seen on the right. Left kidney: The left kidney measures about 11.9 by 5.3 x 4.6 cm. No hydronephrosis is seen. The left renal cortex measures about 1.2 cm. Aorta: Not evaluated Common iliac arteries: Not evaluated Inferior vena cava: Not evaluated Bladder: The bladder is collapsed around a Barriga catheter. Other findings: No hydronephrosis is demonstrated. IMPRESSION: Normal appearing renal ultrasound. THIS DOCUMENT HAS BEEN ELECTRONICALLY SIGNED BY GRICELDA LAWLER MD Procedure Note Interface, Received Via Identiv System - 01/13/2020 11:02 PM EST PROCEDURE INFORMATION: Exam: US Retroperitoneal Complete. Exam date and time: 01/13/2020 9:59 PM Age: 19 years old Clinical indication: Abdominal pain; Flank; Right; Additional info: Eval hydronephrosis TECHNIQUE: Imaging protocol: Real-time ultrasound of the retroperitoneum with image documentation. Complete exam. COMPARISON: US RENAL OR AORTA COMPLETE [id number] 01/08/2020 4:31 PM FINDINGS: Right kidney: The right kidney measures about 11.9 by 6.3 x 5.6 cm. The right renal cortex measures about 1.2 cm. No hydronephrosis is seen on the right. Left kidney: The left kidney measures about 11.9 by 5.3 x 4.6 cm. No hydronephrosis is seen. The left renal cortex measures about 1.2 cm. Aorta: Not evaluated Common iliac arteries: Not evaluated Inferior vena cava: Not evaluated Bladder: The bladder is collapsed around a Barriga catheter. Other findings: No hydronephrosis is demonstrated. IMPRESSION: Normal appearing renal ultrasound. THIS DOCUMENT HAS BEEN ELECTRONICALLY SIGNED BY GRICELDA LAWLER MD Performing Organization Address City/State/Zipcode Phone Number [facility] [address] [place] [address] US Transvaginal with Doppler (01/13/2020 10:48 PM EST) Specimen Narrative Performed At PROCEDURE INFORMATION: PENDING SALE [facility] Exam: US Pelvis, Transvaginal Exam date and time: 01/13/2020 9:59 PM Age: 19 years old Clinical indication: Pelvic pain; Additional info: Eval right ovary TECHNIQUE: Imaging protocol: Real-time transvaginal pelvic ultrasound with image documentation. Transvaginal imaging was used for better evaluation of the endometrium and adnexa. COMPARISON: US RENAL OR AORTA COMPLETE [id number] 01/08/2020 4:31 PM FINDINGS: Uterus/cervix: The uterus measures about 7.7 x 4.1 by 4.7 cm. The endometrial stripe measures about 8 mm. Right adnexa: The right ovary measures about 3.4 by 3.9 x 1.9 cm. There is a simple cyst adjacent to the right ovary measuring about 1.5 cm in diameter. Left adnexa: The left ovary measures about 4.2 x 2.8 by 2.9 cm. Free fluid: There is a small amount of free fluid in the pelvis. IMPRESSION: Normal-appearing pelvic ultrasound. THIS DOCUMENT HAS BEEN ELECTRONICALLY SIGNED BY GRICELDA LAWLER MD Procedure Note Interface, Received Via Identiv System - 01/13/2020 10:59 PM EST PROCEDURE INFORMATION: Exam: US Pelvis, Transvaginal Exam date and time: 01/13/2020 9:59 PM Age: 19 years old Clinical indication: Pelvic pain; Additional info: Eval right ovary TECHNIQUE: Imaging protocol: Real-time transvaginal pelvic ultrasound with image documentation. Transvaginal imaging was used for better evaluation of the endometrium and adnexa. COMPARISON: US RENAL OR AORTA COMPLETE [id number] 01/08/2020 4:31 PM FINDINGS: Uterus/cervix: The uterus measures about 7.7 x 4.1 by 4.7 cm. The endometrial stripe measures about 8 mm. Right adnexa: The right ovary measures about 3.4 by 3.9 x 1.9 cm. There is a simple cyst adjacent to the right ovary measuring about 1.5 cm in diameter. Left adnexa: The left ovary measures about 4.2 x 2.8 by 2.9 cm. Free fluid: There is a small amount of free fluid in the pelvis. IMPRESSION: Normal-appearing pelvic ultrasound. THIS DOCUMENT HAS BEEN ELECTRONICALLY SIGNED BY GRICELDA LAWLER MD Performing Organization Address City/[facility]/Zipcode Phone Number [facility] [address] [place] [address] Urinalysis with microscopic (01/13/2020 8:59 PM EST) Color Yellow [facility] Pathology Clarity Clear [facility] Pathology Specific [place] 1.007 1.003 - 1.030 [facility] Pathology PH Urine 5.0 5.0 - 8.0 [facility] Pathology Total Protein UA 100 (A) Negative mg/dL [facility] Pathology Glucose UA Negative Negative mg/dL [facility] Pathology Ketone Urine Negative Negative mg/dL [facility] Pathology Bilirubin Negative Negative [facility] Pathology Hemoglobin, Urine 3+ (A) Negative [facility] Pathology Leukocyte Esterase 3+ (A) Negative Jeny/uL [facility] Pathology Nitrite Positive (A) Negative [facility] Pathology WBC 102 (H) 0 - 5 /HPF [facility] Pathology RBC 32 (H) 0 - 3 /HPF [facility] Pathology Bacteria, UA 1+ (A) None /HPF [facility]ology Mucus, UA Trace (A) None /LPF [facility] Pathology Amorphous, UA Trace (A) None /HPF [facility] Pathology Specimen Urine Performing Organization Address City/[facility]/Zipcode Phone Number [facility] [address] [place] [address] [phone] [facility] [address] [place] [address] Pathology documented in this encounter Visit Diagnoses Diagnosis Urinary tract infection associated with catheterization of urinary tract, unspecified indwelling urinary catheter type, initial encounter - Primary documented in this encounter Administered Medications Medication Order MAR Action Action Date Dose Rate Site acetaminophen (TYLENOL) tablet Given 01/13/2020 9:49 PM EST 650 mg 650 mg 650 mg, Oral, Once, 01/13/20 at 2100, For 1 dose, Maximum daily dose of acetaminophen from all sources 75 mg/kg/day., cephALEXin (KEFLEX) capsule 500 mg Given 01/13/2020 11:35 PM EST 500 mg 500 mg, Oral, Once, 01/13/20 at 2215, For 1 dose sodium chloride 0.9 % bolus New Bag 01/13/2020 9:10 PM EST 1,000 mLs 999 mL/hr 1,000 mL 1,000 mL, Intravenous, Once, 01/13/20 at 2030, For 1 dose sodium chloride 0.9 % bolus New Bag 01/14/2020 12:30 AM EST 1,000 mLs 999 mL/hr 1,000 mL 1,000 mL, Intravenous, Once, 01/14/20 at 0015, For 1 dose documented in this encounter
--- OUTSIDE RECORDS SUMMARY | 2020-03-13 18:46 | XMS REPORT | Summary of Care ---
:2000 Author Organization [facility] Address [address] [place] [address] Care Team Providers Name Role Phone Krystal Layton DO Primary Care Provider Reason for Visit Reason Comments Abdominal Pain Encounter Details Date Type Department Care Team Description 01/19/2020 Emergency PEDIATRIC EMERGENCY Kim Crane MD Acute cystitis with DEPARTMENT [address] [facility] hematuria (Primary Dx) [address] [place] [address] [place] [id number] Allergies Active Allergy Reactions Severity Noted Date Comments Eggs Or Egg-Derived Products 01/10/2020 Lactose Diarrhea Medium 01/11/2020 documented as of this encounter (statuses as of 01/19/2020) Medications Medication Sig Dispensed Refills Start Date [...] mouth Two Times (CATAPRES) Daily Saline Nasal [place] 2 sprays by Nasal 0 Active 0.65 % Nasal Solution route as needed (OCEAN) for Congestion Acetaminophen 325 MG Take [...] Two Times (COLACE) Daily for 10 days Sulfamethoxazole-Trim Take 1 tablet by 28 tablet 0 01/16/2020 01/30/2020 Active ethoprim 800-160 MG mouth Two Times Oral Tablet (BACTRIM Daily DS,SEPTRA DS) Ondansetron 4 MG Oral Take 1 tablet by 15 tablet 0 01/16/2020 Active Tablet Disintegrating mouth every 8 (ZOFRAN-ODT) (eight) hours as needed for Nausea Ondansetron 4 MG Oral Take 1 tablet by 10 tablet 0 01/16/2020 Active Tablet Disintegrating mouth every 8 (ZOFRAN-ODT) (eight) hours as needed for Nausea documented as of this encounter (statuses as of 01/19/2020) Active Problems Problem Noted Date Urinary retention 01/10/2020 Suicidal ideations 10/26/2015 Aggressive behavior of adolescent 10/24/2015 documented as of this encounter (statuses as of 01/19/2020) Immunizations Name Administration Dates Next Due Influenza [...] Sign Reading Time Taken Comments Blood Pressure 123/78 01/19/2020 9:42 PM EST Pulse 84 01/19/2020 9:42 PM EST Temperature 36.8 01/19/2020 9:42 PM C (98.2 EST F) Respiratory Rate 18 01/19/2020 9:42 PM EST Oxygen Saturation 99% 01/19/2020 9:42 PM EST Inhaled Oxygen Concentration - - Weight 108.2 kg (238 lb 8.6 oz) 01/19/2020 7:07 PM EST Height 172.7 cm (5' 8") 01/19/2020 7:07 PM EST Body Mass Index 36.27 01/19/2020 7:07 PM EST documented in this encounter Discharge Instructions Demond Velazquez MD - 01/19/2020Please continue to take antibiotics for your UTI. AttachmentsThe following attachments cannot be sent through Care Everywhere.Bladder Infection, Female (Adult) (Albanian)Urinary Retention, Female (Albanian)documented in this encounter Plan of Treatment Date Type Specialty Care Team Description 01/21/2020 Office Visit Urology Hyacinth Funez MD [address] [place] [address] [phone] Name Type Priority Associated Diagnoses Date/Time Urine Culture ; Microbiology Routine 01/19/2020 8:46 PM Urine EST Name Type Priority Associated Diagnoses Order Schedule Urine Culture Microbiology Routine Once for 1 Occurrences starting 01/19/2020 until 01/19/2020 Health Maintenance Due Date Last Done Comments [...] Procedure Name Priority Date/Time Associated Comments Diagnosis HCG, URINE STAT 01/19/2020 8:14 Results for this QUALITATIVE PM EST procedure are in the results section. URINALYSIS WITH STAT 01/19/2020 8:14 Results for this MICROSCOPIC PM EST procedure are in the results section. documented in this encounter Results HCG, Urine Qualitative (01/19/2020 8:14 PM EST) HCG, Urine NegativeComment Negative [facility] Qualitative : NEGATIVE: Univ Clin either no HCG Pathology or too low to detect, <20 mU/mL Specific [place], 1.010 1.003 - 1.030 [facility] Urine Univ [facility] Pathology Specimen Urine Performing Organization Address [facility] Phone Number [facility] [address] [place] [address] [facility] [address] [place] [address] Pathology Urinalysis with microscopic (01/19/2020 8:14 PM EST) Color Yellow [facility] Pathology Clarity Clear [facility] Pathology Specific [place] 1.010 1.003 - 1.030 [facility] Pathology PH Urine 6.0 5.0 - 8.0 [facility] Clin Pathology Total Protein UA Negative Negative mg/dL [facility] Pathology Glucose UA Negative Negative mg/dL [facility] Pathology Ketone Urine Negative Negative mg/dL [facility] Pathology Bilirubin Negative Negative [facility] Clin Pathology Hemoglobin, Urine 1+ (A) Negative [facility] Pathology Leukocyte Esterase 2+ (A) Negative Jeny/uL [facility] Pathology Nitrite Negative Negative [facility] Pathology WBC 44 (H) 0 - 5 /HPF [facility] Pathology RBC 5 (H) 0 - 3 /HPF [facility] Pathology Squam Epithel, UA 1 (A) None /HPF [facility] Clin Pathology Specimen Urine Performing Organization Address [facility] Phone Number [facility] [address] [place] [address] [phone] [facility] [address] [place] [address] Pathology documented in this encounter Visit Diagnoses Diagnosis Acute cystitis with hematuria - Primary Acute cystitis documented in this encounter Administered Medications Medication Order MAR Action Action Date Dose Rate Site sulfamethoxazole-trimethoprim Given 01/19/2020 9:43 PM EST 1 tablet (BACTRIM DS,SEPTRA DS) 800-160 MG per tablet 1 tablet 1 tablet, Oral, Once, 01/19/20 at 2115, For 1 dose documented in this encounter
--- OUTSIDE RECORDS SUMMARY | 2020-03-13 18:46 | XMS REPORT | Continuity of Care Document ---
:2000 External Reference #:[id number] Author Name Ean Tejeda MD (transmitted by agent of provider Jacqueline Guerra) Address [address] [place] [phone] Problems Description No Information Available Social History Type Date Description Comments Sex Unknown Allergies, Adverse Reactions, Alerts Description No Information Available Medications Description No Information Available Immunizations Description No Information Available Vital Signs Description No Information Available Results Description No Information Available Procedures Date Code Description Status 01/30/2020 72576 Electrocardiogram Interpretation & Report Only Completed Medical Devices Description No Information Available Encounters Description No Information Available Assessments Date Code Description Provider 01/30/2020 R06.00 Dyspnea, unspecified Ean Tejeda MD 01/30/2020 J45.909 Unspecified asthma, uncomplicated Ean Tejeda MD 01/30/2020 R25.1 Tremor, unspecified Ean Tejeda MD 01/30/2020 F31.9 Bipolar disorder, unspecified Ean Tejeda MD 01/30/2020 Z79.899 Other intermediate designer (current) drug therapy Ean Tejeda MD 01/30/2020 E11.9 Type 2 diabetes mellitus without complications Ean Tejeda MD 01/30/2020 R94.31 Abnormal electrocardiogram [ECG] [EKG] Ean Tejeda MD 01/30/2020 R06.02 Shortness of breath Ean Tejeda MD Plan of Treatment No Information Available Functional Status Description No Information Available Mental Status Description No Information Available Referrals Description No Information Available
--- OUTSIDE RECORDS SUMMARY | 2020-03-13 18:46 | XMS REPORT | Summary of Care ---
:2000 Author Organization [facility] Address [address] [place] [address] Care Team Providers Name Role Phone Catrachito Laytonika Amanda DO Primary Care Provider Reason for Visit Reason Comments Urinary Tract Infection Encounter Details Date Type Department Care Team Description 01/16/2020 Emergency EMERGENCY DEPARTMENT Wyatt Velasquez, Urinary tract infection without hematuria, site [address] [facility] unspecified ([place] [address] [place] [address] Dx) [phone] Allergies Active Allergy Reactions Severity Noted Date Comments Eggs Or Egg-Derived Products 01/10/2020 Lactose Diarrhea Medium 01/11/2020 documented as of this encounter (statuses as of 01/17/2020) Medications Medication Sig Dispensed Refills Start Date [...] if packets are unavailable. Sertraline HCl 50 Take 50 mg by 0 Active MG Oral Tablet mouth daily (ZOLOFT) Vitamin D3 25 MCG Take 2,000 0 Active (1000 UT) Oral Units by mouth Tablet daily (CHOLECALCIFEROL) Atorvastatin Take 10 mg by 0 Active Calcium 10 MG Oral mouth every Tablet (LIPITOR) evening cloNIDine HCl 0.1 Take 0.1 mg by 0 Active MG Oral Tablet mouth Two Times (CATAPRES) Daily Saline Nasal [place] 2 sprays by 0 Active 0.65 % Nasal Nasal route as Solution (OCEAN) needed for Congestion Acetaminophen 325 Take 2 tablets 30 tablet 0 01/11/2020 Active MG Oral Tablet by mouth every 0 6 (six) hours as needed for up to 10 days Senna 8.6 MG Oral Take 2 tablets 60 tablet 0 01/11/2020 Active Tablet by mouth 0 nightly Docusate Sodium 100 Take 1 capsule 20 capsule 0 01/11/2020 Active MG Oral Capsule by mouth Two 0 (COLACE) Times Daily for 10 days Sulfamethoxazole-Tr Take 1 tablet 28 tablet 0 01/16/2020 Active imethoprim 800-160 by mouth Two 0 MG Oral Tablet Times Daily (BACTRIM DS,SEPTRA DS) Ondansetron 4 MG Take 1 tablet 15 tablet 0 01/16/2020 Active Oral Tablet by mouth every Disintegrating 8 (eight) hours (ZOFRAN-ODT) as needed for Nausea Ondansetron 4 MG Take 1 tablet 10 tablet 0 01/16/2020 Active Oral Tablet by mouth every Disintegrating 8 (eight) hours (ZOFRAN-ODT) as needed for Nausea Cephalexin 500 MG Take 1 capsule 40 capsule 0 01/14/2020 Discontinued Oral Capsule by mouth Four 0 (KEFLEX) times daily for 10 days documented as of this encounter (statuses as of 01/17/2020) Active Problems Problem Noted Date Urinary retention 01/10/2020 Suicidal ideations 10/26/2015 Aggressive behavior of adolescent 10/24/2015 documented as of this encounter (statuses as of 01/17/2020) Immunizations Name Administration Dates Next Due Influenza [...] Sign Reading Time Taken Comments Blood Pressure 148/92 01/16/2020 11:25 PM EST Pulse 93 01/16/2020 11:25 PM EST Temperature 36.8 01/16/2020 11:25 PM EST C (98.3 F) Respiratory Rate 18 01/16/2020 11:25 PM EST Oxygen Saturation 98% 01/16/2020 11:25 PM EST Inhaled Oxygen Concentration - - Weight 81.6 kg (180 lb) 01/16/2020 7:41 PM EST Height 172.7 cm (5' 8") 01/16/2020 7:41 PM EST Body Mass Index 27.37 01/16/2020 7:41 PM EST documented in this encounter Discharge Instructions AttachmentsThe following attachments cannot be sent through Care Everywhere.Urinary Tract Infections in Women (Chinese)documented in this encounter Plan of Treatment Date Type Specialty Care Team Description 01/21/2020 Office Visit Urology Hyacinth Funez MD [facility] [place] [address] [phone] Name Type Priority Associated Diagnoses Order Schedule Urinalysis with Lab STAT STAT for 1 Occurrences microscopic starting 01/16/2020 until 01/16/2020 Health Maintenance Due Date Last Done Comments [...] Date/Time Associated Comments Diagnosis HCG, URINE STAT 01/16/2020 8:18 Results for this QUALITATIVE PM EST procedure are in the results section. URINALYSIS WITH STAT 01/16/2020 8:18 Results for this MICROSCOPIC PM EST procedure are in the results section. POCT GLUCOSE, DOCKED Routine 01/16/2020 7:44 Results for this PM EST procedure are in the results section. documented in this encounter Results HCG, Urine Qualitative (01/16/2020 8:18 PM EST) HCG, Urine Indeterminate (A) Negative [facility] Qualitative Comment: Univ Clin Testing performed on dilute samples Pathology with specific gravity less than 1.010 may not reflect levels of HCG present in blood stream. Urine HCG should be evaluated on a first morning urine sample within 48 hours or perform a serum/plasma BHCG. Specific [place], 1.008 1.003 - 1.030 [facility] Urine Univ [facility] Pathology Specimen Urine Performing Organization Address City/State/Zipcode Phone Number [facility] CLINICAL PATHOLOGY [address] [place] [address] [facility] [address] [place] [address] Pathology Urinalysis with microscopic (01/16/2020 8:18 PM EST) Color Yellow [facility] Pathology Clarity Clear [facility] Pathology Specific [place] 1.009 1.003 - 1.030 [facility] Pathology PH Urine 7.0 5.0 - 8.0 [facility] Pathology Total Protein UA Negative Negative mg/dL [facility] Pathology Glucose UA Negative Negative mg/dL [facility] Pathology Ketone Urine Negative Negative mg/dL [facility] Pathology Bilirubin Negative Negative [facility] Pathology Hemoglobin, Urine 2+ (A) Negative [facility] Pathology Leukocyte Esterase 2+ (A) Negative Jeny/uL [facility] Pathology Nitrite Negative Negative [facility] Pathology WBC 37 (H) 0 - 5 /HPF [facility] Pathology RBC 3 0 - 3 /HPF [facility] Pathology Squam Epithel, UA 1 (A) None /HPF [facility] Clin Pathology Specimen Urine Performing Organization Address City/[facility]/Zipcode Phone Number [facility] CLINICAL PATHOLOGY [address] [place] [address] [facility] [address] [place] [address] Pathology POCT glucose, docked (01/16/2020 7:44 PM EST) POC Glucose 180 (H) 70 - 140 mg/dL [facility] POC Specimen Whole Blood Performing Organization Address [facility] Phone Number POINT OF CARE TEST [address] POC [address] [place] [address] documented in this encounter Visit Diagnoses Diagnosis Urinary tract infection without hematuria, site unspecified - Primary documented in this encounter Administered Medications Medication Order MAR Action Action Date Dose Rate Site ondansetron (ZOFRAN-ODT) Given 01/16/2020 8:04 PM EST 4 mg disintegrating tablet 4 mg 4 mg, Oral, Once, Tue01/16/20 at 2000, For 1 dose, Dissolve on tongue., documented in this encounter
--- OUTSIDE RECORDS SUMMARY | 2020-03-13 18:46 | XMS REPORT | Summary of Care ---
:2000 Author Organization [facility] Address [address] [place] [address] Care Team Providers Name Role Phone Krystal Layton DO Primary Care Provider Reason for Visit Reason Comments New Patient Urinary Retention Encounter Details Date Type Department Care Team Description 01/21/2020 Office Visit [facility] Urology @ [place], Urinary retention [address] [facility] MD Hyacinth (Primary Dx) [place], [place] [address] [facility] [address] [place], [place] [phone] Allergies Active Allergy Reactions Severity Noted Date Comments Eggs Or Egg-Derived Products 01/10/2020 Lactose Diarrhea Medium 01/11/2020 documented as of this encounter (statuses as of 01/25/2020) Medications Medication Sig Dispensed Refills Start End Date Status Date LITHIUM PO Take 600 mg by 0 [...] 0 Active MG Oral Tablet mouth Two (CATAPRES) Times Daily Saline Nasal [place] 2 sprays by 0 Active 0.65 % Nasal Nasal route as Solution (OCEAN) needed for Congestion Senna 8.6 MG Oral Take 2 tablets 60 tablet 0 02/10/20 Active Tablet by mouth 0 20 nightly Sulfamethoxazole-Tr Take 1 tablet 28 tablet 0 01/30/20 Active imethoprim 800-160 by mouth Two 0 20 MG Oral Tablet Times Daily (BACTRIM DS,SEPTRA DS) Ondansetron 4 MG Take 1 tablet 15 tablet 0 Active Oral Tablet by mouth every 0 Disintegrating 8 (eight) (ZOFRAN-ODT) hours as needed for Nausea Acetaminophen 325 Take 2 tablets 30 tablet 0 01/21/20 MG Oral Tablet by mouth every 0 20 6 (six) hours as needed for up to 10 days Docusate Sodium 100 Take 1 capsule 20 capsule 0 01/21/20 MG Oral Capsule by mouth Two 0 20 (COLACE) Times Daily for 10 days Ondansetron 4 MG Take 1 tablet 10 tablet 0 01/21/20 Discontinued Oral Tablet by mouth every 0 20 (Duplicate) Disintegrating 8 (eight) (ZOFRAN-ODT) hours as needed for Nausea documented as of this encounter (statuses as of 01/25/2020) Active Problems Problem Noted Date Urinary retention 01/10/2020 Suicidal ideations 10/26/2015 Aggressive behavior of adolescent 10/24/2015 documented as of this encounter (statuses as of 01/25/2020) Immunizations Name Administration Dates Next Due Influenza [...] Sign Reading Time Taken Comments Blood Pressure 141/87 01/21/2020 12:24 PM EST Pulse 69 01/21/2020 12:24 PM EST Temperature 36.8 01/21/2020 12:24 PM EST C (98.3 F) Respiratory Rate - - Oxygen Saturation - - Inhaled Oxygen Concentration - - Weight 109.8 kg (242 lb) 01/21/2020 12:24 PM EST Height 172.7 cm (5' 8") 01/21/2020 12:24 PM EST Body Mass Index 36.8 01/21/2020 12:24 PM EST documented in this encounter Progress Notes Hyacinth Funez MD - 01/21/2020 12:30 PM EST CHIEF COMPLAINT: Urinary retention. HISTORY OF PRESENT ILLNESS: The patient is a pleasant 19-year-old female who has multiple medical issues and has been seen in the emergency room frequently over the course of the past few months. She has a history of diabetes with mood disorder, ADHD, as well as a history of suicide ideations in the past. She was seen in our emergency room in mid-December with complaint of urinary urgency, frequency, and feeling of incompletebladder emptying. She was found to be in urinary retention and had a Bob catheter placed with a residual of about 1000 cc. At that time, she was also found to have a culture positive UTI. She was treated for the urinary tract infection. She was scheduled to follow up with me; however, she was subsequently seen back in the emergency room for unrelated pain and discomfort, but simultaneously was complaining of discomfort associated with the Bob catheter, so the Bob was removed at that emergency room visit. The patient states that she currently is voiding well. She denies any hesitancy or straining. She denies any feeling of incomplete emptying. She denies any history of recurrent UTIs. She denies anydysuria or urinary incontinence. States she has had 1 episode of urinary retention many years ago when she was much younger. She does not remember the associated issues with that. Overall, the patient feels that she voids well and has no urinary complaints at this time. PAST MEDICAL HISTORY Past Medical History: Diagnosis Date ADHD (attention deficit hyperactivity disorder) Diabetes mellitus Mood disorder Suicidal ideations 10/26/2015 PAST SURGICAL HISTORY Past Surgical History: Procedure Laterality Date TONSILLECTOMY Medications: Current Outpatient Medications: Atorvastatin Calcium 10 MG Oral Tablet (LIPITOR), Take 10 mg by mouth every evening, Disp: ,Rfl: cloNIDine HCl 0.1 MG Oral Tablet (CATAPRES), Take 0.1 mg by mouth Two Times Daily, Disp: , Rfl: LITHIUM PO, Take 600 mg by mouth nightly , Disp: , Rfl: MELATONIN TR PO, Take 10 mg by mouth nightly , Disp: , Rfl: OLANZapine 10 MG Oral Tablet (ZYPREXA), Take 15 mg by mouth nightly , Disp: , Rfl: Ondansetron 4 MG Oral Tablet Disintegrating (ZOFRAN-ODT), Take 1 tablet by mouth every 8 (eight) hours as needed for Nausea, Disp: 15 tablet, Rfl: 0 Polyethylene Glycol 3350 Oral Packet (MIRALAX), Take 17 g by mouth daily as needed Please substitute bottle for packets, if packets are unavailable. , Disp: , Rfl: Saline Nasal [place] 0.65 % Nasal Solution (OCEAN), 2 sprays by Nasal route as needed for Congestion, Disp: , Rfl: Senna 8.6 MG Oral Tablet, Take 2 tablets by mouth nightly, Disp: 60 tablet, Rfl: 0 Sertraline HCl 50 MG Oral Tablet (ZOLOFT), Take 50 mg by mouth daily, Disp: , Rfl: Sulfamethoxazole-Trimethoprim 800-160 MG Oral Tablet (BACTRIM DS,SEPTRA DS), Take 1 tablet by mouth Two Times Daily, Disp: 28 tablet, Rfl: 0 Vitamin D3 25 MCG (1000 UT) Oral Tablet (CHOLECALCIFEROL), Take 2,000 Units by mouth daily, Disp: , Rfl: Allergies: Lactose and Eggs or egg-derived products Allergies Allergen Reactions Lactose Diarrhea Eggs Or Egg-Derived Products Tobacco: Social History Tobacco Use Smoking Status Never Smoker Smokeless Tobacco Never Used Alcohol: reports no history of alcohol use. Drug: reports no history of drug use. PAST FAMILY History reviewed. No pertinent family history. SOCIAL HISTORY Social History Socioeconomic History Marital status: Single Spouse name: None Number of children: None Years of education: None Highest education level: None Occupational History None Social Needs Financial resource strain: None Food insecurity: Worry: None Inability: None Transportation needs: Medical: None Non-medical: None Tobacco Use Smoking status: Never Smoker Smokeless tobacco: Never Used Substance and Sexual Activity Alcohol use: No Drug use: No Sexual activity: Never Lifestyle Physical activity: Days per week: None Minutes per session: None Stress: None Relationships Social connections: Talks on phone: None Gets together: None Attends mandaen service: None Active member of club or organization: None Attends meetings of clubs or organizations: None Relationship status: None Intimate partner violence: Fear of current or ex partner: None Emotionally abused: None Physically abused: None Forced sexual activity: None Other Topics Concern None Social History Narrative None Social History Tobacco Use Smoking status: Never Smoker Smokeless tobacco: Never Used Substance Use Topics Alcohol use: No REVIEW OF SYSTEMS Constitutional: No fevers/chills Eyes: No trouble with vision Ears/Nose/Throat: No ear infections or sore throat Neuro: No tremors Endocrine: Not too hot or cold CV: no chest pains Resp: no wheezing or trouble breathing GI: no abdominal pains : as in HPI Heme: no easy bruising Musc: no new muscle weakness Derm: no new rashes EXAMINATION Visit Vitals BP (!) 141/87 (BP Location: Left arm, Patient Position: Sitting, Cuff size: Regular) Pulse 69 Temp 36.8 C Ht 1.727 m Wt 109.8 kg (242 lb) BMI 36.80 kg/m General: Awake, Alert Neurologic: Oriented to person, place, time Eyes: No icterus Heart: Regular rate Lung: Breathing comfortable without distress Abdomen: Soft, non-tender, nondistended, no masses Back: No CVA tenderness Extremities: No edema, no cyanosis Psychiatric: Normal mood, affect Most Recent labs: Lab Results Component Value Date WBC 9.9 01/14/2020 HGB 12.0 01/14/2020 HCT 36.1 01/14/2020 MCV 80.5 01/14/2020 PLT 335 01/14/2020 Lab Results Component Value Date CREATININE 0.78 01/14/2020 BUN 11 01/14/2020 NA 139 01/14/2020 K 3.4 01/14/2020 CL 104 01/14/2020 PVR today is measured at 21 mL. ASSESSMENT/PLAN: The patient is a 19-year-old female with multiple medical issues with 1 episode of urinary retentionassociated with urinary tract infection. 1. The patient does not have a history of frequent urinary tract infections. Chart review demonstrates multiple urinalyses, all of which were negative in September, October, as well as very recently, 3 days ago. If the patient does start to develop frequent urinary tract infections, she will call our office. 2. We will plan for repeat PVR in 6 months. If the patient does have symptoms of incomplete emptying prior to then, she will call our office. Thank you very much for allowing me to participate in this patient's care. Please do not hesitate to contact me with any questions. Hyacinth Funez MD S3B Multi Sensor Operator, Department of Urology [facility] Main: documented in this encounter Plan of Treatment Date Type Specialty Care Team Description 07/23/2020 Office Visit Urology Hyacinth Funez MD [address] [place] [address] [phone] Health Maintenance Due Date Last Done Comments [...] Procedure Name Priority Date/Time Associated Comments Diagnosis POCT URINE DIPSTICK Routine 01/21/2020 12:36 Urinary retention Results for this MULTISTIX 10 SG PM EST procedure are in the results section. URINALYSIS WITH Routine 01/21/2020 12:31 Urinary retention Results for this MICROSCOPIC PM EST procedure are in the results section. URINE CULTURE Routine 01/21/2020 12:31 Urinary retention Results for this PM EST procedure are in the results section. BLADDER SCAN, POST Routine 01/21/2020 Urinary retention VOID documented in this encounter Results POCT urinalysis dipstick Multistix 10 SG (01/21/2020 12:36 PM EST) POC Urine Color Yellow POINT OF CARE POC Urine Clarity Clear POINT OF CARE POC Urine Glucose Negative Negative mg/dl POINT OF CARE POC Urine Bilirubin Negative Negative POINT OF CARE POC Urine Ketones Negative Negative, Trace POINT OF CARE mg/dl POC Urine Specific 1.010 <=1.005, 1.010, POINT OF CARE [place] 1.015, 1.020, 1.025 POC Urine Blood Negative Negative POINT OF CARE POC Urine pH 7.0 5.0, 5.5, 6.0, POINT OF CARE 6.5, 7.0, 7.5, 8.0 POC Urine Protein Negative Negative, 15 mg/dl POINT OF CARE POC Urine Urobilinogen 0.2 0.2 , 1.0 POINT OF CARE {Ehrlich_U}/dl POC Urine Nitrite Negative Negative POINT OF CARE POC Urine Leukocyte Trace (A) Negative POINT OF CARE Esterase QC Acceptable Yes POINT OF CARE Specimen Urine Performing Organization Address City/State/[facility] Phone Number POINT OF CARE Urinalysis with microscopic (01/21/2020 12:31 PM EST) Color Colorless [facility] Pathology Clarity Clear [facility] Pathology Specific [place] 1.006 1.003 - 1.030 [facility] Pathology PH Urine 7.0 5.0 - 8.0 [facility] Pathology Total Protein UA Negative Negative mg/dL [facility] Pathology Glucose UA Negative Negative mg/dL [facility] Pathology [place] Urine Negative Negative mg/dL [facility] Pathology Bilirubin Negative Negative [facility] Pathology Hemoglobin, Urine Negative Negative [facility] Pathology Leukocyte Esterase 2+ (A) Negative Jney/uL [facility] Pathology Nitrite Negative Negative [facility] Pathology WBC 7 (H) 0 - 5 /HPF [facility] Pathology RBC 1 0 - 3 /HPF [facility] Pathology Bacteria, UA 1+ (A) None /HPF [facility] Pathology Specimen Urine Performing Organization Address [facility] Phone Number [facility] PATH[facility] [address] [place] [address] [facility] [address] [place] [address] Pathology Urine Culture (01/21/2020 12:31 PM EST) Special Request None [facility] PATHOLOGY Culture/Results NORMAL GUERO [facility] Pathology Culture/Results (NOTE) [facility] Additional testing was performed to rule out a pathogen. [facility] Pathology Specimen Urine Performing Organization Address [facility] Phone Number [facility] CLINICAL PATHOLOGY [address] [place] [address] [phone] [facility] [address] [place] [address] Pathology documented in this encounter Visit Diagnoses Diagnosis Urinary retention - Primary Retention of urine, unspecified documented in this encounter
--- OUTSIDE RECORDS SUMMARY | 2020-03-13 18:46 | XMS REPORT | Summary of Care ---
:2000 Author Organization [facility] Address [address] [place] [address] Care Team Providers Name Role Phone OniCatrachito caballeroika Amanda DO Primary Care Provider Reason for Visit Reason Comments Nausea Shortness of Breath Encounter Details Date Type Department Care Team Description 02/04/2020 Emergency EMERGENCY DEPARTMENT CC Maryellen Keenan, Nausea (Primary Dx) [address] [place] [address] [address] [facility] [phone] [place], [place] [id number] Allergies Active Allergy Reactions Severity Noted Date Comments Eggs Or Egg-Derived Products 01/10/2020 Lactose Diarrhea Medium 01/11/2020 documented as of this encounter (statuses as of 02/04/2020) Medications Medication Sig Dispensed Refills Start Date [...] mouth Two Times (CATAPRES) Daily Saline Nasal [place] 2 sprays by Nasal 0 Active 0.65 [...] as of this encounter (statuses as of 02/04/2020) Active Problems Problem Noted Date Urinary retention 01/10/2020 Suicidal ideations 10/26/2015 Aggressive behavior of adolescent 10/24/2015 documented as of this encounter (statuses as of 02/04/2020) Immunizations Name Administration Dates Next Due Influenza [...] Sign Reading Time Taken Comments Blood Pressure 118/80 02/04/2020 7:56 PM EDT Pulse 76 02/04/2020 7:56 PM EDT Temperature 36.6 02/04/2020 7:56 PM EDT C (97.9 F) Respiratory Rate 18 02/04/2020 7:56 PM EDT Oxygen Saturation 98% 02/04/2020 7:56 PM EDT Inhaled Oxygen Concentration - - Weight - - Height - - Body Mass Index - - documented in this encounter Discharge Instructions AttachmentsThe following attachments cannot be sent through Care Everywhere.Gastritis, Understanding (Botswanan)documented in this encounter Plan of Treatment Date Type Specialty Care Team Description 07/23/2020 Office Visit Urology Hyacinth Funez MD [facility] [place] [address] [phone] Name Type Priority Associated Diagnoses Date/Time [place] COVID-19 Microbiology Routine 02/04/2020 4:08 PM EDT PCR (Send Out) Name Type Priority Associated Diagnoses Order Schedule [place] COVID-19 Microbiology Routine Once for 1 Occurrences PCR (Send Out) starting 02/04/2020 until 02/04/2020 Health Maintenance Due Date Last Done Comments [...] Procedure Name Priority Date/Time Associated Comments Diagnosis URINALYSIS WITH STAT 02/04/2020 4:49 Results for this MICROSCOPIC PM EDT procedure are in the results section. CBC AND DIFFERENTIAL STAT 02/04/2020 4:49 Results for this PM EDT procedure are in the results section. LIPASE LEVEL STAT 02/04/2020 4:49 Results for this PM EDT procedure are in the results section. COMPREHENSIVE STAT 02/04/2020 4:49 Results for this METABOLIC PANEL PM EDT procedure are in the results section. RESPIRATORY PANEL STAT 02/04/2020 4:08 Results for this PM EDT procedure are in the results section. documented in this encounter Results Urinalysis with microscopic (02/04/2020 4:49 PM EDT) Color Colorless [facility] at Clarity Clear [facility] at Specific [place] 1.009 1.003 - 1.030 [facility] at PH Urine 7.0 5.0 - 8.0 [facility] at Total Protein UA Negative Negative mg/dL [facility] at Glucose UA Negative Negative mg/dL [facility] at Ketone Urine Negative Negative mg/dL [facility] at Bilirubin Negative Negative [facility] at Hemoglobin, Urine 2+ (A) Negative [facility] at Leukocyte Esterase Negative Negative [place]/uL [facility] at Nitrite Negative Negative [facility] at WBC 1 0 - 5 /HPF [facility] at RBC 1 0 - 3 /HPF [facility] at Bacteria, UA Trace (A) None /HPF [facility] at Squam Epithel, UA 1 (A) None /HPF [facility] at Specimen Urine Performing Organization Address City/[facility] Phone Number [facility] PATHOLOGY AT [address] [address] [phone] [facility] at [address] [address] Lipase Level (02/04/2020 4:49 PM EDT) Lipase 25 13 - 60 U/L [facility] at Specimen Plasma Performing Organization Address [facility] Phone Number [address] [address] [facility] at [address] [address] Comprehensive Metabolic Panel (02/04/2020 4:49 PM EDT) Albumin 4.6 3.5 - 5.2 g/dL [facility] at Bilirubin, Total 0.2 <1.2 mg/dL [facility] at Calcium 10.1 (H) 8.6 - 10.0 [facility] mg/dL [facility] at Chloride 103 98 - 107 mmol/L [facility] at Creatinine 0.73 0.50 - 0.90 [facility] mg/dL [facility] at Glucose 105 70 - 140 mg/dL [facility] at Alkaline Phosphatase 119 (H) 45 - 87 U/L [facility] at Potassium 3.9 3.4 - 5.1 [facility] mmol/L [facility] at Total Protein 7.7 6.4 - 8.3 g/dL [facility] at Sodium 140 136 - 145 [facility] mmol/L [facility] at AST/SGO 13 <32 U/L [facility] at Blood Urea Nitrogen 15 6 - 20 mg/dL [facility] at Osmolality, Panda 291 275 - 300 [facility] mosm/kg [facility] at BUN/Cre Ratio 20 [facility] at Bicarbonate 21 (L) 22 - 29 mmol/L [facility] at ALT/SGP 17 <33 U/L [facility] at Anion Gap 16 (H) 8 - 15 mmol/L [facility] at A/G Ratio 1.0 [facility] at GFR Non >90 >60 [facility] [place] 2009 CDK-EPI mL/min/1.73m2 [facility] at GFR >90 >60 [facility] 2008 CKD-EPI mL/min/1.73m2 [facility] at Specimen Plasma Performing Organization Address City/State/[place] Phone Number [facility] [place] [address] [facility] at [address] [place] [address] CBC and Differential (02/04/2020 4:49 PM EDT) White Blood Cell 9.8 4.5 - 13 [facility] 10*3/uL [facility] at Red Blood Cell 4.81 4.1 - 5.3 [facility] 10*6/uL [facility] at Hemoglobin 12.5 11.5 - 15.5 [facility] g/dL [facility] at Hematocrit 38.5 36 - 45 % [facility] at Mean Cell Volume 80.0 80 - 96 fL [facility] at Mean Cell Hemoglobin 26.0 (L) 27 - 33 pg [facility] at Mean Cell Hgb Conc 32.5 32.0 - 36.0 [facility] g/dL [facility] at Red Cell Dist Width 15.3 (H) 11.5 - 14.5 % [facility] at Platelet Count 455 (H) 150 - 400 [facility] 10*3/uL [facility] at Differential Type Automated Diff [facility] at Neutrophil 82 % [facility] at Lymphocyte 16 % [facility] at Monocyte 2 % [facility] at Eosinophil 0 % [facility] at Basophil 0 % [facility] at Abs Neutrophil 8.01 (H) 1.8 - 7.0 [facility] 10*3/uL [facility] at Abs Lymphocyte 1.57 1.2 - 4.0 [facility] 10*3/uL [facility] at Abs Monocyte 0.20 0 - 0.8 [facility] 10*3/uL [facility] at Abs Eosinophil 0.01 0 - 0.5 [facility] 10*3/uL [facility] at Abs Basophil 0.04 0 - 0.2 [facility] 10*3/uL Medical [facility] at Nucleated Red Blood 0 0 - 0 [facility] Cells /100{WBCs} [facility] at Specimen EDTA Whole Blood Performing Organization Address City/[facility] Phone Number [address] [address] [facility] at [address] [address] Respiratory Panel (02/04/2020 4:08 PM EDT) Special Request None [facility] at Culture/Results Polymerase chain reaction is NEGATIVE for Influenza A H1, H3 and 2009 H1 viruses, Influenza B virus, Respiratory syncytial virus, Human metapneumovirus, Parainfluenza virus 1, 2, 3 and 4, Adenovirus, Rh [facility] inovirus/Enterovirus, Coronavirus HKU1, NL63, OC43, [facility] at and 229E, Bordetella pertussis, Mycoplasma pneumoniae and Chlamydia pneumoniae. This assay does not detect novel Coronavirus (SARS-CoV, SARS-CoV-2, MERS-CoV) . Specimen Nasopharyngeal Swab Performing Organization Address City/[facility] Phone Number [address] [address] [facility] at [address] [address] documented in this encounter Visit Diagnoses Diagnosis Nausea - Primary Nausea alone documented in this encounter Administered Medications Medication Order MAR Action Action Date Dose Rate Site ondansetron (ZOFRAN) injection 4 mg New Bag 02/04/2020 5:21 PM EDT 4 mg 4 mg, Intravenous, Once, 02/04/20 at 1630, For 1 dose sodium chloride 0.9 % bolus New Bag 02/04/2020 5:22 PM EDT 1,000 mLs 999 mL/hr 1,000 mL 1,000 mL, Intravenous, Once, 02/04/20 at 1630, For 1 dose documented in this encounter Additional Health Concerns Infection Noted Time Resolved Time COVID-19 Rule-Out 02/04/2020 4:06 PM EDT documented as of this encounter
--- OUTSIDE RECORDS SUMMARY | 2020-03-13 18:46 | XMS REPORT | Summary of Care ---
:2000 Author Organization [facility] Address [address] [place] [address] Care Team Providers Name Role Phone Catrachito Laytonika Amanda DO Primary Care Provider Reason for Visit Reason Comments Other Encounter Details Date Type Department Care Team Description 01/29/2020 Emergency PEDIATRIC EMERGENCY Maria A Baldwin Mild asthma with acute DEPARTMENT MARIA ELENA Patel MD exacerbation, [address] [facility] [place] [address] [address] persistent (Primary Dx) [phone] [place] [address] [phone] Allergies Active Allergy Reactions Severity Noted Date Comments Eggs Or Egg-Derived Products 01/10/2020 Lactose Diarrhea Medium 01/11/2020 documented as of this encounter (statuses as of 01/29/2020) Medications Medication Sig Dispensed Refills Start Date [...] mouth Two Times (CATAPRES) Daily Saline Nasal [place] 2 sprays by Nasal 0 Active 0.65 % Nasal Solution route as needed (OCEAN) for Congestion Senna 8.6 MG Oral Take 2 tablets by 60 tablet 0 01/11/2020 02/10/2020 Active Tablet mouth nightly Sulfamethoxazole-Trim Take 1 tablet by 28 tablet [...] as of this encounter (statuses as of 01/29/2020) Active Problems Problem Noted Date Urinary retention 01/10/2020 Suicidal ideations 10/26/2015 Aggressive behavior of adolescent 10/24/2015 documented as of this encounter (statuses as of 01/29/2020) Immunizations Name Administration Dates Next Due Influenza [...] Sign Reading Time Taken Comments Blood Pressure 132/78 01/29/2020 10:16 PM EDT Pulse 112 01/29/2020 10:16 PM EDT Temperature 36.8 01/29/2020 10:16 PM EDT C (98.3 F) Respiratory Rate 18 01/29/2020 10:16 PM EDT Oxygen Saturation 96% 01/29/2020 10:16 PM EDT Inhaled Oxygen Concentration - - Weight - - Height - - Body Mass Index - - documented in this encounter Discharge Instructions InstructionsDueland-Ismael, Zara R, MD - 01/29/2020Please use your inhaler every 4-6 hours as needed AttachmentsThe following attachments cannot be sent through Care Everywhere.Asthma Triggers, Understanding (Finnish)Asthma, Acute (Adult) ( Finnish)documented in this encounter Plan of Treatment Date Type Specialty Care Team Description 07/23/2020 Office Visit Urology Hyacinth Funez MD [facility] [place] [address] [phone] Health Maintenance Due Date Last Done Comments [...] Procedure Name Priority Date/Time Associated Diagnosis Comments XR CHEST FRONTAL STAT 01/29/2020 9:00 PM Results for this AND LATERAL 69041 EDT procedure are in the results section. documented in this encounter Results XR Chest Frontal and Lateral (01/29/2020 9:00 PM EDT) Specimen Narrative Performed At PROCEDURE INFORMATION: [facility] Exam: XR Chest, 2 Views Exam date and time: 01/29/2020 9:00 PM Age: 19 years old Clinical indication: Other: Diminished right sounds TECHNIQUE: Imaging protocol: XR of the chest Views: 2 views. COMPARISON: CR XR CHEST FRONTAL AND LATERAL [id number] 01/27/2020 6:49 PM FINDINGS: Lungs: Unremarkable. No consolidation. Pleural space: Unremarkable. No pleural effusion. No pneumothorax. Heart/Mediastinum: Unremarkable. No cardiomegaly. Bones/joints: Unremarkable. IMPRESSION: No acute findings. THIS DOCUMENT HAS BEEN ELECTRONICALLY SIGNED BY TRAE MARC MD Procedure Note Interface, Received Via [employer] System - 01/29/2020 9:37 PM EDT PROCEDURE INFORMATION: Exam: XR Chest, 2 Views Exam date and time: 01/29/2020 9:00 PM Age: 19 years old Clinical indication: Other: Diminished right sounds TECHNIQUE: Imaging protocol: XR of the chest Views: 2 views. COMPARISON: CR XR CHEST FRONTAL AND LATERAL [id number] 01/27/2020 6:49 PM FINDINGS: Lungs: Unremarkable. No consolidation. Pleural space: Unremarkable. No pleural effusion. No pneumothorax. Heart/Mediastinum: Unremarkable. No cardiomegaly. Bones/joints: Unremarkable. IMPRESSION: No acute findings. THIS DOCUMENT HAS BEEN ELECTRONICALLY SIGNED BY TRAE MARC MD Performing Organization Address City/State/Zipcode Phone Number [facility] [address] [place] [address] documented in this encounter Visit Diagnoses Diagnosis Mild asthma with acute exacerbation, unspecified whether persistent - Primary documented in this encounter Administered Medications Medication Order MAR Action Action Date Dose Rate Site dexamethasone sodium phosphate Given 01/29/2020 10:26 PM EDT 10 mg (DECADRON) 10 MG/ML PF injection 10 mg 10 mg, Oral, Once, 01/29/20 at 2230, For 1 dose ipratropium-albuterol (DUONEB) 0.5-2.5 (3) Given 01/29/2020 9:13 PM EDT 3 mLs MG/3ML nebulizer solution 3 mL 3 mL, Nebulization, Once, 01/29/20 at 2045, For 1 dose, For Adults Q8 Hours is Hospital Standard, all orders will be changed to this unless GENNA is selected 'Yes' below., documented in this encounter
--- OUTSIDE RECORDS SUMMARY | 2020-03-13 18:46 | XMS REPORT | Summary of Care ---
:2000 Author Organization [facility] Address [address] [place] [address] Care Team Providers Name Role Phone Onitrevonreina Krystal Amanda DO Primary Care Provider Reason for Visit Reason Comments Shortness of Breath Encounter Details Date Type Department Care Team Description 01/27/2020 Emergency EMERGENCY DEPARTMENT CC James Coon, Dyspnea, unspecified [address] type (Primary Dx) [place] [address] [address] [facility] [phone] [place], [place] [id number] Allergies Active Allergy Reactions Severity Noted Date Comments Eggs Or Egg-Derived Products 01/10/2020 Lactose Diarrhea Medium 01/11/2020 documented as of this encounter (statuses as of 01/27/2020) Medications Medication Sig Dispensed Refills Start Date [...] mouth Two Times (CATAPRES) Daily Saline Nasal [place] 2 sprays by Nasal 0 Active 0.65 [...] as of this encounter (statuses as of 01/27/2020) Active Problems Problem Noted Date Urinary retention 01/10/2020 Suicidal ideations 10/26/2015 Aggressive behavior of adolescent 10/24/2015 documented as of this encounter (statuses as of 01/27/2020) Immunizations Name Administration Dates Next Due Influenza [...] Sign Reading Time Taken Comments Blood Pressure 138/84 01/27/2020 8:13 PM EDT Pulse 98 01/27/2020 8:13 PM EDT Temperature 36.8 01/27/2020 8:13 PM EDT C (98.2 F) Respiratory Rate 18 01/27/2020 8:13 PM EDT Oxygen Saturation 95% 01/27/2020 8:13 PM EDT Inhaled Oxygen Concentration - - Weight 81.6 kg (180 lb) 01/27/2020 6:15 PM EDT Height 172.7 cm (5' 8") 01/27/2020 6:15 PM EDT Body Mass Index 27.37 01/27/2020 6:15 PM EDT documented in this encounter Discharge Instructions James Martinez MD - 01/27/2020The underlying cause of your shortness of breath is still in question and you require close follow-up with your primary care doctor. The underlying cause of your shortness of breath AttachmentsThe following attachments cannot be sent through Care Everywhere.Shortness of Breath (Dyspnea) (Cypriot)Albuterol inhalation aerosol ( Cypriot)documented in this encounter Plan of Treatment Date Type Specialty Care Team Description 07/23/2020 Office Visit Urology Hyacinth Funez MD [address] [place] [address] [phone] Name Type Priority Associated Diagnoses Date/Time EKG 12 Lead ECG STAT 01/27/2020 7:25 PM EDT 1ED EKG Interpretation ECG Routine 01/27/2020 8:08 PM EDT Health Maintenance Due Date Last Done Comments [...] Procedure Name Priority Date/Time Associated Comments Diagnosis EKG ED PHYSICIAN Routine 01/27/2020 8:08 INTERPRETATION PM EDT POCT ISTAT TROPONIN Routine 01/27/2020 7:31 Results for this PM EDT procedure are in the results section. EKG 12-LEAD - CMAXX 01/27/2020 7:25 REPORT PM EDT EKG 12-LEAD STAT 01/27/2020 7:25 PM EDT Procedure Note - Interface, Received Via [employer] - 01/27/2020 7 :27 PM EDT Ventricular Rate: 84 BPM Atrial Rate: 84 BPM P-R Interval: 156 ms QRS Duration: 80 ms Q-T Interval: 364 ms QTC Calculation(Bazett): 430 ms P [place]: 29 degrees R [place]: -7 degrees T [place]: -10 degrees : SINUS RHYTHM : NONSPECIFIC T WAVE ABNORMALITY : ABNORMAL ECG : WHEN COMPARED WITH ECG OF 05-JAN-2020 20:06, : T WAVE INVERSION LESS EVIDENT IN INFERIOR LEADS : NON SPECIFIC T WAVE ABNORMALITY ANTERIOR LEADS : THIS IS A PRELIMINARY RESULT. CBC AND DIFFERENTIAL STAT 01/27/2020 7:00 PM EDT TSH STAT 01/27/2020 7:00 PM EDT COMPREHENSIVE METABOLIC PANEL STAT 01/27/2020 7:00 PM EDT XR CHEST FRONTAL AND LATERAL STAT 01/27/2020 6:55 PM EDT Results for this [id number] procedure are in the results section. documented in this encounter Results POCT i-STAT Troponin (01/27/2020 7:31 PM EDT) i-STAT Troponin I 0.00 0.00 - 0.08 ng/mL [facility] POC Specimen Whole Blood Performing Organization Address City/State/Zipcode Phone Number POINT OF CARE TEST [address] [facility] [place] [address] [facility] POC [address] [facility] [place] [address] EKG 12-LEAD - CMAXX REPORT (01/27/2020 7:25 PM EDT) Narrative Performed At Comprehensive Metabolic Panel (01/27/2020 7:00 PM EDT) Albumin 4.3 3.5 - 5.2 g/dL [facility] at Bilirubin, Total 0.2 <1.2 mg/dL [facility] Calcium 9.3 8.6 - 10.0 [facility] mg/dL [facility] at Chloride 104 98 - 107 mmol/L [facility] Creatinine 0.69 0.50 - 0.90 [facility] mg/dL [facility] at CG Glucose 105 70 - 140 mg/dL [facility] Alkaline Phosphatase 106 (H) 45 - 87 U/L [facility] CG Potassium 3.9 3.4 - 5.1 [facility] mmol/L [facility] at Total Protein 7.0 6.4 - 8.3 g/dL [facility] Sodium 138 136 - 145 [facility] mmol/L [facility] AST/SGO 22 <32 U/L [facility] Blood Urea Nitrogen 12 6 - 20 mg/dL [facility] Osmolality, Panda 286 275 - 300 [facility] mosm/kg [facility] BUN/Cre Ratio 17 [facility] Bicarbonate 21 (L) 22 - 29 mmol/L [facility] ALT/SGP 35 (H) <33 U/L [facility] Anion Gap 13 8 - 15 mmol/L [facility] A/G Ratio 2.0 [facility] GFR Non >90 >60 [facility] [place] 2008 CDK-EPI mL/min/1.73m2 [facility] at CG GFR >90 >60 [facility] 2009 CKD-EPI mL/min/1.73m2 [facility] at Specimen Plasma Performing Organization Address City/State/Zipcode Phone Number [facility] [place] [phone] [place] [address] [facility] [address] [place] [address] CBC and Differential (01/27/2020 7:00 PM EDT) White Blood Cell 8.6 4.5 - 13 [facility] 10*3/uL [facility] CG Red Blood Cell 4.64 4.1 - 5.3 [facility] 10*6/uL [facility] Hemoglobin 12.1 11.5 - 15.5 [facility] g/dL [facility] Hematocrit 36.8 36 - 45 % [facility] Mean Cell Volume 79.4 (L) 80 - 96 fL [facility] Mean Cell Hemoglobin 26.1 (L) 27 - 33 pg [facility] Mean Cell Hgb Conc 32.9 32.0 - 36.0 [facility] g/dL [facility] Red Cell Dist Width 14.8 (H) 11.5 - 14.5 % [facility] Platelet Count 413 (H) 150 - 400 [facility] 10*3/uL [facility] at Differential Type Automated Diff [facility] Neutrophil 60 % [facility] Lymphocyte 31 % [facility] Monocyte 6 % [facility] Eosinophil 2 % [facility] Basophil 1 % [facility] Abs Neutrophil 5.16 1.8 - 7.0 [facility] 10*3/uL [facility] Abs Lymphocyte 2.68 1.2 - 4.0 [facility] 10*3/uL [facility] Abs Monocyte 0.55 0 - 0.8 [facility] 10*3/uL [facility] Abs Eosinophil 0.16 0 - 0.5 [facility] 10*3/uL [facility] Abs Basophil 0.06 0 - 0.2 [facility] 10*3/uL [facility] Nucleated Red Blood 0 0 - 0 [facility] Cells /100{WBCs} [facility] Specimen EDTA Whole Blood Performing Organization Address City/[facility] Phone Number [facility] AT [address] [address] [phone] [facility] [address] [address] TSH (01/27/2020 7:00 PM EDT) TSH 2.760 0.500 - 4.300 u[IU]/mL [facility] Specimen Plasma Performing Organization Address City/[facility] Phone Number [address] [address] [facility] [address] [address] XR Chest Frontal and Lateral (01/27/2020 6:55 PM EDT) Specimen Narrative Performed At PROCEDURE INFORMATION: [facility] Exam: XR Chest, 2 Views Exam date and time: 01/27/2020 6:47 PM Age: 19 years old Clinical indication: Dyspnea, unspecified; Chest pain TECHNIQUE: Imaging protocol: XR of the chest Views: 2 views. COMPARISON: CR XR CHEST FRONTAL AND LATERAL [id number] 01/07/2020 2:13 PM FINDINGS: Lungs: Unremarkable. No consolidation. Pleural space: Unremarkable. No pleural effusion. No pneumothorax. Heart/Mediastinum: Unremarkable. No cardiomegaly. Bones/joints: Unremarkable. IMPRESSION: No acute findings. THIS DOCUMENT HAS BEEN ELECTRONICALLY SIGNED BY GRICELDA LAWLER MD Procedure Note Interface, Received Via [employer] - 01/27/2020 7:15 PM EDT PROCEDURE INFORMATION: Exam: XR Chest, 2 Views Exam date and time: 01/27/2020 6:47 PM Age: 19 years old Clinical indication: Dyspnea, unspecified; Chest pain TECHNIQUE: Imaging protocol: XR of the chest Views: 2 views. COMPARISON: CR XR CHEST FRONTAL AND LATERAL [id number] 01/07/2020 2:13 PM FINDINGS: Lungs: Unremarkable. No consolidation. Pleural space: Unremarkable. No pleural effusion. No pneumothorax. Heart/Mediastinum: Unremarkable. No cardiomegaly. Bones/joints: Unremarkable. IMPRESSION: No acute findings. THIS DOCUMENT HAS BEEN ELECTRONICALLY SIGNED BY GRICELDA LAWLER MD Performing Organization Address City/State/Zipcode Phone Number [facility] [address] [place] [address] documented in this encounter Visit Diagnoses Diagnosis Dyspnea, unspecified type - Primary documented in this encounter Administered Medications Medication Order MAR Action Action Date Dose Rate Site albuterol (PROVENTIL Given 01/27/2020 8:11 PM EDT 2 puffs HFA;VENTOLIN HFA) inhaler 2 puff 2 puff, Inhalation, Once, 01/27/20 at 2015, For 1 dose, Shake the inhaler well before each spray., documented in this encounter
--- OUTSIDE RECORDS SUMMARY | 2020-03-13 18:46 | XMS REPORT | Summary of Care ---
:2000 Author Organization [facility] Address [address] [place] [address] Care Team Providers Name Role Phone OnitrevonKrystal haung Amanda SALMON Primary Care Provider Reason for Visit Reason Comments Foot Injury right foot Encounter Details Date Type Department Care Team Description 01/24/2020 - Emergency PEDIATRIC EMERGENCY Edwin Tate Sprain of right 01/25/2020 DEPARTMENT MARIA ELENA Walker MD ankle, unspecified [address] ligament, [place] [address] encounter (Primary [id number] Dx) [phone] Allergies Active Allergy Reactions Severity Noted Date Comments Eggs Or Egg-Derived Products 01/10/2020 Lactose Diarrhea Medium 01/11/2020 documented as of this encounter (statuses as of 01/25/2020) Medications Medication Sig Dispensed Refills Start Date [...] mouth Two Times (CATAPRES) Daily Saline Nasal [place] 2 sprays by Nasal 0 Active 0.65 [...] Sign Reading Time Taken Comments Blood Pressure 129/91 01/24/2020 8:12 PM EST Pulse 86 01/24/2020 8:12 PM EST Temperature 36.8 01/24/2020 8:12 PM C (98.2 EST F) Respiratory Rate 18 01/24/2020 8:12 PM EST Oxygen Saturation 98% 01/24/2020 8:12 PM EST Inhaled Oxygen Concentration - - Weight 110.8 kg (244 lb 4.3 oz) 01/24/2020 8:12 PM EST Height 172.7 cm (5' 8") 01/24/2020 8:12 PM EST Body Mass Index 37.14 01/24/2020 8:12 PM EST documented in this encounter Discharge Instructions InstructionsAndrés Quintero III, MD - 01/24/2020See your orthopedist within the next week. Use your crutches to avoid weight bearing on the right foot as much as possible. AttachmentsThe following attachments cannot be sent through Care Everywhere.EARL Wrap ([place])Sprain, Ankle (Adult) ([place])documented in this encounter Plan of Treatment Date Type Specialty Care Team Description 07/23/2020 Office Visit Urology Hyacinth Funez MD [address] [place] [address] [phone] Health Maintenance Due Date Last Done Comments [...] Name Priority Date/Time Associated Diagnosis Comments XR ANKLE 3 OR MORE STAT 01/24/2020 11:15 PM Results for this VIEWS 39437 EST procedure are in the results section. XR FOOT 3 OR MORE STAT 01/24/2020 10:48 PM Results for this VIEWS 90852 EST procedure are in the results section. documented in this encounter Results XR Ankle 3 or More Views Right (01/24/2020 11:15 PM EST) Specimen Narrative Performed At PROCEDURE IN[facility] Exam: XR Right Ankle Exam date and time: 01/24/2020 11:05 PM Age: 19 years old Clinical indication: Other: R/O bony injury TECHNIQUE: Imaging protocol: XR Right ankle. Views: 3 or more views. COMPARISON: CR XR FOOT 3 OR MORE VIEWS [id number] 01/24/2020 10:39 PM FINDINGS: Bones/joints: No acute fracture. No dislocation. Soft tissues: Soft tissue swelling. IMPRESSION: No acute fracture. THIS DOCUMENT HAS BEEN ELECTRONICALLY SIGNED BY KEVON HULL MD Procedure Note Interface, Received Via [employer] System - 01/24/2020 11:41 PM EST PROCEDURE INFORMATION: Exam: XR Right Ankle Exam date and time: 01/24/2020 11:05 PM Age: 19 years old Clinical indication: Other: R/O bony injury TECHNIQUE: Imaging protocol: XR Right ankle. Views: 3 or more views. COMPARISON: CR XR FOOT 3 OR MORE VIEWS [id number] 01/24/2020 10:39 PM FINDINGS: Bones/joints: No acute fracture. No dislocation. Soft tissues: Soft tissue swelling. IMPRESSION: No acute fracture. THIS DOCUMENT HAS BEEN ELECTRONICALLY SIGNED BY KEVON HULL MD Performing Organization Address City/State/Zipcode Phone Number [facility] [address] [place] [address] XR Foot 3 or More Views Right (01/24/2020 10:48 PM EST) Specimen Narrative Performed At PROCEDURE INFORMATION: [facility] Exam: XR Right Foot Complete Exam date and time: 01/24/2020 10:52 PM Age: 19 years old Clinical indication: Other: R/O bony injury TECHNIQUE: Imaging protocol: XR Right foot. Views: 3 or more views. COMPARISON: CT LOWER EXTREMITY WITHOUT CONTRAST [id number] 12/08/2019 7:06 PM FINDINGS: Bones/joints: There is moderate hallux valgus deformity. There is no evidence of acute fracture. Soft tissues: No soft tissue swelling is identified. IMPRESSION: No acute abnormality. THIS DOCUMENT HAS BEEN ELECTRONICALLY SIGNED BY GRICELDA LAWLER MD Procedure Note Interface, Received Via [employer] - 01/24/2020 11:03 PM EST PROCEDURE INFORMATION: Exam: XR Right Foot Complete Exam date and time: 01/24/2020 10:52 PM Age: 19 years old Clinical indication: Other: R/O bony injury TECHNIQUE: Imaging protocol: XR Right foot. Views: 3 or more views. COMPARISON: CT LOWER EXTREMITY WITHOUT CONTRAST [id number] 12/08/2019 7:06 PM FINDINGS: Bones/joints: There is moderate hallux valgus deformity. There is no evidence of acute fracture. Soft tissues: No soft tissue swelling is identified. IMPRESSION: No acute abnormality. THIS DOCUMENT HAS BEEN ELECTRONICALLY SIGNED BY GRICELDA LAWLER MD Performing Organization Address City/State/Zipcode Phone Number [facility] [address] [place] [address] documented in this encounter Visit Diagnoses Diagnosis Sprain of right ankle, unspecified ligament, initial encounter - Primary documented in this encounter Administered Medications Medication Order MAR Action Action Date Dose Rate Site ketorolac (TORADOL) 30 MG/ML Given 01/24/2020 10:29 PM EST 15 mg injection 15 mg 15 mg, Intramuscular, Once, Alexsandra 01/24/20 at 2230, For 1 dose documented in this encounter
[2020-03-13 18:49] LABS: Hematocrit 40 % (35-47); Hemoglobin 13.1 g/dL (12.0-16.0); Mean Corpuscular HGB Conc 33 g/dL (31-36); Mean Corpuscular Hemoglobin 25 pg (27-31); Mean Corpuscular Volume 77 fL (80-97); Platelet Count 339 10^3/uL (150-450); Red Blood Count 5.16 10^6 /uL (3.70-4.87); Red Cell Distribution Width 16 % (10-15); White Blood Count 5.9 10^3/uL (3.5-10.8)
[2020-03-13 19:02] LABS: Urine Appearance Clear; Urine Bilirubin Negative (Negative); Urine Blood Negative (Negative); Urine Color Colorless; Urine Glucose Negative (Negative); Urine Ketones Negative (Negative); Urine Nitrite Negative (Negative); Urine Protein Negative (Negative); Urine Specific Gravity 1.002 (1.010-1.030); Urine Urobilinogen Negative (Negative)
[2020-03-13 19:30] LABS: Albumin 4.6 g/dL (3.2-5.2); Calcium 9.5 mg/dL (8.6-10.3); Potassium 3.3 mmol/L (3.5-5.0); Total Bilirubin 0.7 mg/dL (0.2-1.0)
[2020-03-13 19:36] LABS: Albumin/Globulin Ratio 1.8 (1-3); BUN/Creatinine Ratio 8.6 (8-20); EGFR African American 110.2 (>60); EGFR Non-African American 91.1 (>60); Globulin 2.5 g/dL (2-4); Total Protein 7.1 g/dL (6.4-8.9)
[2020-03-13 21:16] VITALS: BP 142/102
== END 2020-03-13 21:07 | disposition home or self-care (01) ==
LOC: ED 17:48
DX: E11.65 Type 2 diabetes mellitus with hyperglycemia (principal); D58.2 Other hemoglobinopathies; R63.1 Polydipsia; Z79.899 Other long term (current) drug therapy
CPT/HCPCS: 36415; 80053; 81003; 82803; 85027; 99282

== ENCOUNTER 2020-03-16 14:32 | Inpatient (IN) ==
[2020-03-16 15:07] LABS: ABS Eosinophils 0.1 10^3/ul (0-0.6); ABS Lymphocytes 1.1 10^3/ul (1.0-4.8); ABS Monocytes 0.3 10^3/ul (0-0.8); Eosinophil % 1.5 %; Hematocrit 39 % (35-47); Lymphocyte % 22.7 %; Mean Corpuscular HGB Conc 33 g/dL (31-36); Mean Corpuscular Hemoglobin 25 pg (27-31); Mean Corpuscular Volume 76 fL (80-97); Mean Platelet Volume 7.5 fL (7.4-10.4); Nucleated Red Blood Cells % 0.1; Platelet Count 328 10^3/uL (150-450); Red Blood Count 5.17 10^6 /uL (3.70-4.87); Red Cell Distribution Width 16 % (10-15)
[2020-03-16 15:25] LABS: ALT 19 U/L (7-52); AST 17 U/L (13-39); Albumin 4.7 g/dL (3.2-5.2); Albumin/Globulin Ratio 1.7 (1-3); Alkaline Phosphatase 85 U/L (34-104); Anion Gap 9 mmol/L (2-11); BUN/Creatinine Ratio 6.9 (8-20); Blood Urea Nitrogen 6 mg/dL (6-24); CO2 Carbon Dioxide 22 mmol/L (22-32); Calcium 9.8 mg/dL (8.6-10.3); Chloride 107 mmol/L (101-111); EGFR African American 101.5 (>60); EGFR Non-African American 83.9 (>60); Globulin 2.7 g/dL (2-4); Glucose 127 mg/dL (70-100); Potassium 3.2 mmol/L (3.5-5.0); Sodium 138 mmol/L (135-145); Total Protein 7.4 g/dL (6.4-8.9)
[2020-03-16 15:32] LABS: HCG Pregnancy < 0.60 mIU/mL
[2020-03-16 15:48] LABS: Acetaminophen < 15 mcg/mL; Alcohol, S < 10 mg/dL (<10); Salicylate < 2.50 mg/dL (<30)
[2020-03-16 18:59] LABS: Urine Appearance Clear; Urine Bacteria Absent (Absent); Urine Bilirubin Negative (Negative); Urine Blood Negative (Negative); Urine Color Yellow; Urine Glucose Negative (Negative); Urine Ketones Negative (Negative); Urine Nitrite Negative (Negative); Urine Protein Negative (Negative); Urine Red Blood Cell Trace(0-2/hpf) (Absent); Urine Specific Gravity 1.005 (1.010-1.030); Urine Squamous Epithelial Cell Present (Absent); Urine Urobilinogen Negative (Negative); Urine White Blood Cell Trace(0-5/hpf) (Absent)
[2020-03-16 19:12] LABS: Urine Benzodiazepine Screen None Detected (None Detect); Urine Opiates Screen None Detected (None Detect)
[2020-03-17] MEDS ORDERED: Al Hydrox/Mg Hydrox/Simet LIQ 30 ML UDC PO PRN (01:07)
[2020-03-17] MEDS ORDERED: Potassium Chlor 20 meq TAB.ER PO ONE (08:14)
[2020-03-17 10:57] LABS: Lithium < 0.10 mmol/L (0.6-1.2)
[2020-03-17] MEDS: Vitamin THERAPEUTIC TAB PO SCH (10:57)
[2020-03-17] MEDS ORDERED: Albuterol 2.5mg/3 ml (0.083%) NEB.SOLN INH PRN (12:39)
[2020-03-17] MEDS: Albuterol 2.5mg/3 ml (0.083%) NEB.SOLN INH PRN ×2 (13:10→16:22)
[2020-03-18] MEDS: Vitamin THERAPEUTIC TAB PO SCH (10:08)
[2020-03-18] MEDS: Albuterol 2.5mg/3 ml (0.083%) NEB.SOLN INH PRN ×2 (10:11→17:25)
[2020-03-19] MEDS: Vitamin THERAPEUTIC TAB PO SCH (09:05)
[2020-03-19] MEDS ORDERED: medroxyPROGESTERone ACETATE 150 MG/ML VIAL IM ONE (10:22)
[2020-03-19] MEDS: Albuterol 2.5mg/3 ml (0.083%) NEB.SOLN INH PRN (20:58)
[2020-03-20] MEDS: Vitamin THERAPEUTIC TAB PO SCH (09:29)
[2020-03-20] MEDS: Albuterol 2.5mg/3 ml (0.083%) NEB.SOLN INH PRN (12:36)
[2020-03-21] MEDS: Vitamin THERAPEUTIC TAB PO SCH (08:20)
[2020-03-22] MEDS: Vitamin THERAPEUTIC TAB PO SCH (08:12)
[2020-03-22] MEDS: Albuterol 2.5mg/3 ml (0.083%) NEB.SOLN INH PRN (08:16)
[2020-03-23] MEDS: Vitamin THERAPEUTIC TAB PO SCH (08:10)
[2020-03-23] MEDS: Albuterol 2.5mg/3 ml (0.083%) NEB.SOLN INH PRN (13:59)
[2020-03-24] MEDS: Vitamin THERAPEUTIC TAB PO SCH (08:20)
[2020-03-24] MEDS ORDERED: diPHENhydraMINE IV 50 MG/ML 1 ml VIAL (BENADRYL) IM ONE (14:34)
[2020-03-24] MEDS: LORazepam 1 mg TAB (*) PO PRN (19:13)
[2020-03-25 08:01] VITALS: BP 128/77
[2020-03-25] MEDS: Vitamin THERAPEUTIC TAB PO SCH (08:31)
[2020-03-25] MEDS: LORazepam 1 mg TAB (*) PO PRN (11:22)
== END 2020-03-25 15:40 | disposition home or self-care (01) | DRG 753 ==
LOC: ED 14:32 → BSU 21:50
PROVIDERS: ADMIT Psychiatry & Neurology Psychiatry; ATTEND Psychiatry & Neurology Psychiatry